=== PATIENT | female | born 1935 | race Caucasian/White ===

== ENCOUNTER 2020-03-23 | Outpatient (REF) | payer OTHER, MEDICARE, MEDICAID, SELFPAY ==
--- NOTE | 2020-03-23 | XR_ITS ---
EXAMINATION: XR HIP, RIGHT CLINICAL INFORMATION: Postoperative evaluation. COMPARISON: 02/24/2020 and pelvic radiographs. TECHNIQUE: Two views of the right hip. FINDINGS: The patient is status post right hip arthroplasty showing good anatomic alignment with no evidence for hardware malfunction or change. 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 The transverse component superiorly appears normally aligned. Cortical irregularity along the lateral margin is unchanged. XR/XR hip RT min 2V IMPRESSION: 1. No significant interval hardware abnormality/change. 2. Fragmentation of the greater trochanter appears similar to the previous study without significant displacement.
== END 2020-03-23 00:01 | disposition home or self-care (01) ==
LOC: HO.XRAY
PROVIDERS: Visit Provider Orthopaedic Surgery
DX: Z96.641 Presence of right artificial hip joint (principal)
CPT/HCPCS: 73502

== ENCOUNTER → 2020-03-23 10:35 | Outpatient (BNVA) | payer MEDICARE, MEDICAID, SELFPAY | PROVIDERS: PCP Family Medicine; Visit Provider Orthopaedic Surgery | DX: Z47.1 Aftercare following joint replacement surgery (principal); Z96.641 Presence of right artificial hip joint | CPT/HCPCS: 99024; 99212 ==

== ENCOUNTER 2020-04-17 07:52 | Outpatient (REF) | payer SELFPAY ==
[2020-04-17 10:11] LABS: Anion Gap 16 (12-20); Blood Urea Nitrogen 16 mg/dL (9-16); Calcium 8.9 mg/dL (8.4-10.2); Carbon Dioxide 25 mmol/L (22-29); Chloride 92 mmol/L (96-108); Estimated Glomerular Filt Rate 54; Glucose Random 140 mg/dL (60-115); Sodium 128 mmol/L (135-145)
== END 2020-04-17 07:53 | disposition home or self-care (01) ==
LOC: HO.MMNH3L 07:52
PROVIDERS: Visit Provider Family Medicine
DX: E13.9 Other specified diabetes mellitus without complications (principal); I10 Essential (primary) hypertension
CPT/HCPCS: 80048

== ENCOUNTER 2023-03-19 11:55 | Outpatient (REF) | payer MEDICARE, MEDICAID, SELFPAY ==
[2023-03-19 13:10] LABS: MANUAL DIFF FLAG NO
[2023-03-19 13:14] LABS: Basophils Absolute Auto 0.1 X10*3/uL (0.0-0.2); Eosinophils Absolute Auto 0.2 X10*3/uL (0.0-0.4); Eosinophils Percent Auto 2.1 % (0-4); Hematocrit 34.9 % (37.0-47.0); Hemoglobin 11.2 g/dl (12.0-16.0); Imm Gran Abs Auto 0.02 X10*3/uL (0.00-0.03); Imm Gran Pct Auto 0.2 % (0.0-0.4); Lymphocytes Absolute Auto 2.2 X10*3/uL (1.2-4.9); Lymphocytes Percent Auto 26.9 % (20-40); Mean Corpuscular HGB Conc 32.1 g/dl (31.0-35.0); Mean Corpuscular Hemoglobin 30.9 pg (27.0-33.0); Mean Corpuscular Volume 96.1 fL (80.0-98.0); Mean Platelet Volume 10.8 fL (9.4-12.3); Monocytes Absolute Auto 0.7 X10*3/uL (0.1-1.2); Monocytes Percent Auto 9.2 % (2-11); Neutrophils Absolute Auto 4.9 x10*3/uL (2.0-8.3); Neutrophils Percent Auto 60.6 % (45-73); Platelet Count 346 X10*3/uL (160-400); Red Blood Count 3.63 X10*6/uL (4.20-5.50); Red Cell Distribution Width 16.9 % (11.0-16.0); White Blood Count 8.1 X10*3/uL (4.8-10.8)
[2023-03-19 13:39] LABS: Anion Gap 14 (12-20); Blood Urea Nitrogen 11 mg/dL (9-16); Calcium 9.2 mg/dL (8.4-10.2); Carbon Dioxide 24 mmol/L (22-29); Chloride 105 mmol/L (96-108); Estimated Glomerular Filt Rate 54; Glucose Random 103 mg/dL (60-115); Potassium 3.8 mmol/L (3.3-5.1); Sodium 139 mmol/L (135-145)
[2023-03-19 13:44] LABS: Appearance Urine Cloudy; Color Urine Yellow; Glucose Urine UA Negative (Negative); Leukocyte Esterase Urine Trace (Negative); Nitrite Urine Negative (Negative); Specific Gravity - Urine 1.015 (1.005-1.025); UMIC TRIGGER UACC YES; Urine Blood Negative (Negative); Urine Ketones Negative (Negative); Urine Protein 100 (2+) mg/dL (Neg-Trace)
[2023-03-19 13:51] LABS: Bacteria Urine 1+ (None Seen); Hyaline Casts Urine 0-2 /LPF (0-2); RBC Urine 0-2 /HPF (0-2); Squamous Epithelial Cell Urine >20 /HPF (0-2); UACC Culture Trigger YES
== END 2023-03-19 11:56 | disposition home or self-care (01) ==
LOC: HO.HHCL 11:55
PROVIDERS: Visit Provider Internal Medicine
DX: E11.42 Type 2 diabetes mellitus with diabetic polyneuropathy (principal); I10 Essential (primary) hypertension; N30.01 Acute cystitis with hematuria
CPT/HCPCS: 36415; 80048; 81001; 85025; 87086

== ENCOUNTER 2023-09-19 09:53 | Outpatient (REF) | payer MEDICARE, MEDICAID, SELFPAY ==
[2023-09-21 22:09] LABS: TS Negative Control Passed; TS Panel A 0; TS Panel B 1; TS Positive Control Passed; TSpotTB Negative (Negative)
== END 2023-09-19 09:54 | disposition home or self-care (01) ==
LOC: HO.HHCL 09:53
PROVIDERS: Visit Provider General Practice
DX: Z02.1 Encounter for pre-employment examination (principal)
CPT/HCPCS: 36415; 86481

== ENCOUNTER 2025-03-08 13:46 | Outpatient (REF) | payer MEDICARE, MEDICAID, SELFPAY ==
--- OUTSIDE RECORDS SUMMARY | 2025-03-08 13:00 | XMS_ITS | Encounter Summary ---
Author Organization [employer] Address [address] [facility] [address] [place] [address] Care Team Providers Care Mail Room Clerk Name Role Phone Sharron Cruz MD Primary Care Provider [phone] Reason for Visit * Reason Comments hospital discharge follow up Encounter Details Date Type Department Care Team ([facility] Contact Info) Description 03/08/2025 1:00 PM EDT Office Visit [facility] MED [facility] PEDS [address] [place] [address] Sharron Cruz MD [address] [place] [address] Primary hypertension (Primary Dx); Difficulty walking; Primary insomnia; Type 2 diabetes with complication (CMS/HCC) Social History Tobacco Use Types Packs/Day Years [...] is your housing situation today? I have hermann dale 02/22/[address] you [...] 1:57 PM EDT Patricia Davis MA * Poor appetite or overeating Answer [...] of Assessment Author 16 03/08/2025 1:57 PM MEDARDOT Konstantin Simpson MA * How difficult have these problems made it for you to do your work, take care of things at home, or get along with other people? Answer Date of Assessment Author Extremely difficult 03/08/2025 1:57 PM Patricia Cobos MA documented as of this encounter Plan of Treatment Scheduled Orders Name Type Priority Associated Diagnoses Orde r Schedule Basic Metabolic Panel Lab Routine Primary hypertension Expected: 03/08/2025 (Approximate), Expires: 03/08/2026 documented as of this encounter Goals Goal Patient Goal Type Associated Problems Recent Progress Patient-Stated? Author Hemoglobin A1c < 8 Result Component 6.4(03/19/2024 4:15 PM EDT) No Liz Tapia, Enrique documented as of this encounter Procedures Procedure Name Priority Date/Time Associated Diagnosis Comments POCT GLUCOSE Routine 03/08/2025 1:56 PM EDT Type 2 diabetes with complication (CMS/HCC) documented in this encounter Results * (ABNORMAL) POCT Glucose (03/08/2025 1:56 PM EDT) Glucose Blood, POC 308(A) 60 - 200 mg/dL QC Media Lot # [id number] Lot# Expiration Date Comment:random Blood Capillary blood specimen / Unknown 03/08/2025 1:56 PM EDT Sharron Cruz MD POINT OF CARE TEST ENTER/ED IT ORDERABLES Final Result documented in this encounter Visit Diagnoses Diagnosis Primary hypertension- Primary Unspecified essential hypertension Difficulty walking Difficulty in walking Primary insomnia Persistent disorder of initiating or maintaining sleep Type 2 diabetes with complication (CMS/HCC) documented in this encounter Additional Health Concerns Assessment Noted Time PHQ-9 Depression Total Score: 16 025 1:57 PM EDT documented as of this encounter Care Teams Mail Room Clerk Relationship Specialty Start Date End Date Sharron Cruz MD [address] [place] [id number] PCP - General Internal Medicine 03/01/25 [facility] 08/05/24 documented as of this encounter
--- OUTSIDE RECORDS SUMMARY | 2025-03-08 17:37 | XMS_ITS | Encounter Summary ---
Author Organization [employer] Address [address] [facility] 7t [place] [address] Care Team Providers Care Precision Agronomist Name Role Phone Argelia Max MD Primary Care Provider [phone] Sharron Cruz MD Primary Care Provider [phone] Reason for Visit * Reason Onset Date Comments FYI 07/28/2023 Encounter Details Date Type Department Care Team ([facility] st Contact Info) Description 07/28/2023 Telephone [facility] MEDICINE [address] [place], [place] [phone] Argelia Max MD [address] [place], [place] [phone] FYI Social History Tobacco Use Types Packs/Day Years Used Date Smoking Tobacco: Never Passive Smoke Exposure: Never Smokeless Tobacco: Never Alcohol Use Standard Drinks/Week Comments Never 0 (1 standard drink = 0.6 oz pur e alcohol) Housing Stability Answer Date Recorded What is your housing situation today? I have hermann dale 04/11/[address] you li ve. Do you have problems with any of the following? I am not sure 04/11/2023 Food Insecurity Answer Date Recorded Within the past 12 months, y ou worried that your food would run out before you got money to buy more: Never True 04/11/2023 Within the past 12 months,th e food you bought just didn't last and you didn't have enough money to get more: Never True Transportation Answer Date Recorded In the past 12 months, has l ack of transportation kept you from medical appts, meetings, work or from getting things needed for daily living? No 04/11/2023 Utilities Answer Date Recorded In the past 12 months, has t he electric, gas, oil or water company threatened to shut off services in your home? No 04/11/2023 Comments Unknown Sex and Gender Information Value Date Recorded Sex Assigned at Female 04/22/2022 10:14 AM EDT Legal Sex Female 10:14 AM EDT Gender Identity Female 04/22/2022 10:14 AM EDT Sexual Orientation Straight 04/22/2022 10 :14 AM EDT documented as of this encounter Miscellaneous Notes * Telephone Encounter - Meagan Patricio RN - 07/28/2023 4:37 PM EST FYI * Telephone Encounter - El Marin - 07/28/2023 4:12 PM EST Tc from Deidre, physical therapist at [facility], wanting to let pcp know pt was discharged early.Deidre stated pt's grandson requested she be discharged early due to her reaching baseline in mobility. If any questions you can contact Deidre [phone]. documented in this encounter Plan of Treatment Not on file documented as of this encounter Visit Diagnoses Not on filedocumented in this encounter Care Teams Precision Agronomist Relationship Specialty Start Date End Date Argelia Max MD [address] [place] [address] PCP - General Family Medicine 02/24/22 02/28/25 Sharron Cruz MD [address] [place] [address] PCP - General Internal Medicine 03/01/25 [facility] 08/05/24 documented as of this encounter
--- OUTSIDE RECORDS SUMMARY | 2025-03-08 17:37 | XMS_ITS | Patient Health Record ---
Author Organization [facility] Address [address] [place] [address] Care Team Providers Care Shirt Trimmer Name Role Phone Gerardo ZAMORA, Deborah Primary Care Provider Unavailab Trevin Brown Unavailable [phone] Reason For Referral No Information Plan Of Treatment No Information Insurance Providers Payer Name Payer Address Payer Phone Subscriber Number Group Number Insured Name Patient Relationship to Insured Coverage Start Date Coverage End Date MEDICARE OF [place] [address] JESUS MONIQUE [address] [id number] FRANSICO LOMBARDO Self - patient is the insured MEDICAID OF [facility] [address] [place] [address] [id number] FRANSICO LOMBARDO Self - patient is the insured
--- OUTSIDE RECORDS SUMMARY | 2025-03-08 17:37 | XMS_ITS | Encounter Summary ---
Author Organization [employer] Address [address] [facility] 7t [place] [address] Care Team Providers Care Parole Officer Name Role Phone Argelia Max MD Primary Care Provider [phone] Sharron Cruz MD Primary Care Provider [phone] Reason for Visit * Reason Onset Date Comments FYI 05/29/2023 Encounter Details Date Type Department Care Team ([facility] st Contact Info) Description 05/29/2023 Telephone [facility] MEDICINE 230 [place], [place] [phone] Argelia Max MD [address] [place], [place] [phone] FYI Social History Tobacco Use Types Packs/Day Years Used Date Smoking Tobacco: Never Smokeless Tobacco: Never Alcohol Use Standard [...] encounter Miscellaneous Notes * Telephone Encounter - Ailyn Shipley - 05/29/2023 9:04 AM EST Tc from aleena calling to advise PCP she will be faxing form for authorization on [employer] services. States will need it signed and faxed to [phone] before 06/03. Any questions, contact aleena at [phone] ext [phone] documented in this encounter Plan of Treatment Not on file documented as of this encounter Visit Diagnoses Not on filedocumented in this encounter Care Teams Parole Officer Relationship Specialty Start Date End Date Argelia Max MD [address] [place] [address] PCP - General Family Medicine 02/24/22 02/28/25 Sharron Cruz MD [address] [place] [address] PCP - General Internal Medicine 03/01/25 [facility] 08/05/24 documented as of this encounter
--- OUTSIDE RECORDS SUMMARY | 2025-03-08 17:37 | XMS_ITS | Encounter Summary ---
Author Organization [employer] Address [address] [facility] 7t [place] [address] Care Team Providers Care Line Assigner Name Role Phone Argelia Max MD Primary Care Provider [phone] Sharron Cruz MD Primary Care Provider [phone] Reason for Visit * Reason Onset Date Comments Hospital Follow-up 12/27/2024 Encounter Details Date Type Department Care Team (Late st Contact Info) Description 12/27/2024 Telephone [facility] MEDICINE 230 [place], [place] [phone] Argelia Max MD 230 [place], [place] [phone] Hospital Follow-up Social History Tobacco Use Types Packs/Day Years Used Date Smoking Tobacco: Never Passive Smoke Exposure: Never Smokeless Tobacco: Never Alcohol Use Standard Drinks/Week Comments Never 0 (1 standard drink = 0.6 oz pur e alcohol) Depression Answer Date Recorded Patient Health Questionnaire-9 Score 8 09/19/2023 Patient Health Questionnaire-9 Score 8 09/19/2023 Last PHQ-9: Questionnaire Data Not on file 0 09/19/2023 Housing Stability Answer Date Recorded What is your housing situation today? I have [place]mann dale 09/10/[address] you li ve. Do you have problems with any of the following? None of the above 09/10/2023 Food Insecurity Answer Date Recorded Within the [...] off services in your home? No 04/11/2023 Depression Answer Date Recorded Patient Health Questionnaire-2 Score 1 09/19/2023 Comments No Sex and Gender Information Value Date Recorded Sex Assigned at Female 04/22/2022 10:14 AM EDT Legal Sex Female 10:14 AM EDT Gender Identity Female 04/22/2022 10:14 AM EDT Sexual Orientation Straight 04/22/2022 10 :14 AM EDT documented as of this encounter Miscellaneous Notes * Telephone Encounter - Antoine Burdick - 12/27/2024 12:50 PM EDT Tc from pt requesting a HDF appt. Hospital: [facility] Date of admission: 12/16/24 Discharge date: 12/21/24 Diagnosed: dehydration / other DX that granddaughter was unable to provide. D/s advised to stop Losartan and Labetalol documented in this encounter Plan of Treatment Not on file documented as of this encounter Goals Goal Patient Goal Type Associated Problems Recent Progress Patient-Stated? Author Hemoglobin A1c < 8 Result Component 6.4(03/19/2024 4:15 PM EDT) No Liz Tapia, PharmD documented as of this encounter Visit Diagnoses Not on filedocumented in this encounter Additional Health Concerns Assessment Noted Time PHQ-9 Depression Total Score: 8 09/19/19 24 9:44 AM EDT documented as of this encounter Care Teams Line Assigner Relationship Specialty Start Date End Date Argelia Mxa MD [address] [place] [address] PCP - General Family Medicine 02/24/22 02/28/25 Sharron Cruz MD [address] [place] [address] PCP - General Internal Medicine 03/01/25 [facility] 08/05/24 documented as of this encounter
--- OUTSIDE RECORDS SUMMARY | 2025-03-08 17:38 | XMS_ITS | Encounter Summary ---
Author Organization [employer] Address [address] [facility] 7 [place] [address] Care Team Providers Care Torpedo Shooter Name Role Phone Sharron Cruz MD Primary Care Provider [phone] Reason for Visit * Reason Onset Date Comments Chart Prep 03/07/2025 Encounter Details Date Type Department Care Team ([facility] st Contact Info) Description 03/07/2025 Telephone [facility] [address] [place] [address] Sharron Cruz MD [address] [place] [address] Chart Prep Social History Tobacco Use Types Packs/Day Years [...] encounter Miscellaneous Notes * Telephone Encounter - Zulay Marin MA - 03/07/2025 10:36 AM EDT Chart Prep Labs: not done Images: done Referrals: complete Vaccines due: Tdap, RSV, and Zoster Screenings: eye exam and foot exam Overdue care gaps: SBIRT and PHQ-9 documented in this encounter Plan of Treatment [...] documented as of this encounter Care Teams Torpedo Shooter Relationship Specialty Start Date End Date Sharron Cruz MD [address] [place] [address] [place] [address] PCP - General Internal Medicine 03/01/25 [facility] 08/05/24 documented as of this encounter
--- OUTSIDE RECORDS SUMMARY | 2025-03-08 17:38 | XMS_ITS | Encounter Summary ---
Author Organization [employer] Address [address] [facility] 7t [place] [address] Care Team Providers Care Dollyman Name Role Phone Argelia Max MD Primary Care Provider [phone] Sharron Cruz MD Primary Care Provider [phone] Reason for Visit * Reason Comments Med Refill Encounter Details Date Type Department Care Team ([facility] st Contact Info) Description 09/30/2023 Refill [facility] MEDICINE [address] [place], [place] [phone] Zakia Troncoso DO [address] [place], [place] [phone] Primary insomnia Social History Tobacco Use Types Packs/Day Years [...] AM EDT documented as of this encounter Plan of Treatment Not on file documented as of this encounter Goals Goal Patient Goal Type Associated Problems Recent Progress Patient-Stated? 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
--- OUTSIDE RECORDS SUMMARY | 2025-03-08 17:38 | XMS_ITS | Encounter Summary ---
Author Organization [employer] Address [address] [facility] 7t [place] [address] Care Team Providers Care Operating Cost Clerk Name Role Phone Argelia Max MD Primary Care Provider [phone] Sharron Cruz MD Primary Care Provider [phone] Reason for Visit * Reason Onset Date Comments Hospital Follow-up 02/28/2025 Encounter Details Date Type Department Care Team (Late st Contact Info) Description 02/28/2025 Telephone [facility] MEDICINE [address] [place], [place] [phone] Argelia Max MD [address] [place], [place] [phone] Hospital Follow-up Social History Tobacco Use Types [...] Recorded Patient Health Questionnaire-2 Score 1 09/19/2023 Internet Access Answer Date Recorded Internet Access [...] encounter Miscellaneous Notes * Telephone Encounter - Emmy Maldnoado - 02/28/2025 3:25 PM EDT Tc from pt requesting a HDF appt. Hospital: [address], [place] [address] Date of admission: 02/07 Discharge date: 02/28 Diagnosed: Broken arm *Send message to [place] Clinical Care Coordinators documented in this encounter Plan of Treatment [...] documented as of this encounter Care Teams Operating Cost Clerk Relationship Specialty Start Date End Date Argelia Max MD [address] [place] [address] PCP - General Family Medicine 02/24/22 02/28/25 Sharron Cruz MD [address] [place] [address] PCP - General Internal Medicine 03/01/25 [facility] 08/05/24 documented as of this encounter
--- OUTSIDE RECORDS SUMMARY | 2025-03-08 17:38 | XMS_ITS | Encounter Summary ---
Author Organization [employer] Address 75 [facility] 7t [place] [address] Care Team Providers Care Agency Service Coordinator Name Role Phone Argelia Max MD Primary Care Provider [phone] Sharron Cruz MD Primary Care Provider [phone] Reason for Visit * Reason Onset Date Comments Nurse Triage 11/11/2023 Encounter Details Date Type Department Care Team ([facility] st Contact Info) Description 11/11/2023 Telephone [facility] MEDICINE [address] [place], [place] [phone] Argelia Max MD 230 [place], [place] [phone] Nurse Triage Social History Tobacco Use Types Packs/Day Years [...] Miscellaneous Notes * Telephone Encounter - Ailyn Quinten - 11/11/2023 8:41 AM EDT Symptoms: COVID-19 Exposure, Cough, Runny Nose, Body Aches Outcome: Schedule a same-day appointment or talk to a nurse or provider today Reason: Caller denied all higher acuity questions The caller accepted this outcome Please contact [facility] at [phone] (conference interpreter) documented in this encounter Plan of Treatment [...] documented as of this encounter Care Teams Agency Service Coordinator Relationship Specialty Start Date End Date Argelia Max MD [address] [place] [phone] PCP - General Family Medicine 02/24/22 02/28/25 Sharron Cruz MD [address] [place] [address] PCP - General Internal Medicine 03/01/25 [facility] 08/05/24 documented as of this encounter
--- OUTSIDE RECORDS SUMMARY | 2025-03-08 17:38 | XMS_ITS | Clinical Summary ---
Author Organization [facility] [employer] Address [address] [facility] [address] [place] [address] Care Team Providers Care Drop Wire Aliner Name Role Phone Sharron Cruz MD Primary Care Provider [phone] Allergies Active Allergy Reactions Criticality Noted Date Comments Sulfamethoxazole 06/29/2010 Other reaction(s): rash: itchy Trimethoprim Hives,Rash Medium 06/29/2010 Other reaction(s): rash: itchy Other reaction(s): Nausea Medications glucose (Glutose) 40 % gel oral gelIndications: Diabetic peripheral neuropathy associated with type 2 diabetes mellitus (CMS/HCC) Take 15 g by mouth if needed for low blood sugar. 15 g 3 03/19/20 23 Active lidocaine (Lidoderm) 5 % patchIndication s:Chronic pain of both shoulders Apply 1 patch topically Once per day. Remove & discard patch within 12 hours or as directed by MD. 30 patch 5 03/20/20 24 025 Active Diclofenac Sodium 1 % gelIndications: Chronic pain of both shoulders Apply 2 g topically in the morning and 2 g at noon. 150 g 3 03/20/20 24 Active docusate sodium (Colace) 100 MG capsule TAKE ONE CAPSULE EVERY MORNING 90 capsule 3 04/29/20 24 Active atorvastatin (Lipitor) 80 MG tablet TAKE ONE TABLET EVERY MORNING 90 tablet 3 07/23/19 25 Active FREESTYLE LITE test stripIndication s:Type 2 diabetes with complication (CMS/HCC) Use to test blood sugar 2 times daily 100 each 12 08/17/19 25 026 Active Blood Pressure Monitoring (Blood Pressure Cuff) miscIndications :Primary hypertension 1 each Once daily. 1 each 08/17/19 25 Active omeprazole (PriLOSEC) [address] capsule TAKE ONE CAPSULE EVERY MORNING BEFORE BREAKFAST 90 capsule 1 10/21/19 25 Active levothyroxine (Synthroid, Levoxyl) 137 MCG tablet Take 137 mcg by mouth Once per day. 90 tablet 3 11/03/19 25 Active ferrous sulfate (Fe Tabs) 325 (65 Fe) MG EC tablet Take 1 tablet (325 mg) by mouth Once per day. Do not crush, chew, or split. 30 tablet 2 01/27/20 25 025 Active amLODIPine (Norvasc) 10 MG tablet Take 1 tablet (10 mg) by mouth Once per day. 90 tablet 1 01/27/20 25 Active QUEtiapine (SEROquel) 25 MG tablet TAKE ONE TABLET EVERY NIGHT AT BEDTIME 30 tablet 3 02/01/20 25 Active oxyCODONE (Roxicodone) 5 MG immediate release tabletIndicatio ns:Physeal fracture of proximal end of humerus with routine healing, unspecified physeal fracture configuration, unspecified laterality, subsequent encounter TAKE 1/2 TO 1 TABLET EVERY 8 HOURS NEEDED FOR SEVERE PAIN 15 tablet 03/02/20 25 Active ascorbic acid (Vitamin C) 500 mg chewable tablet Chew at bed time. 02/10/20 25 Active glucagon 1 MG injection Inject into the muscle. 02/03/20 25 Active acetaminophen (Tylenol) 325 MG tablet Take by mouth every 6 (six) hours. 02/09/20 25 Active gabapentin (Neurontin) 100 MG capsule Take 1 capsule twice daily 60 capsule 03/03/20 25 Active clopidogrel (Plavix) 75 MG tablet Take 1 tablet (75 mg) by mouth Once per day. 90 tablet 03/03/20 25 Active traZODone (Desyrel) 50 MG tablet Take 1 tablet (50 mg) by mouth if needed at bedtime for sleep. 30 tablet 2 03/03/20 25 Active losartan (Cozaar) 100 MG tabletIndicatio ns:Primary hypertension Take 1 tablet (100 mg) by mouth Once per day. 30 tablet 11 03/08/20 25 026 Active ascorbic acid (Vitamin C) 500 MG tablet Take 1 tablet (500 mg) by mouth Once per day. 30 tablet 11 03/08/20 25 026 Active melatonin 5 MG tabletIndicatio ns:Primary insomnia 5 to 10 mg once a day at bedtime 60 tablet 3 03/08/20 Active Blood Pressure Monitor kit Use as directed 3x/week 1 kit 03/19/20 025 Discontinued(Du plicate order (will not trigger notification to Pharmacy)) magnesium oxide (Mag-Ox) 400 (240 Mg) MG tablet Take 400 mg by mouth Once per day. 06/06/20 025 Discontinued(Me d list cleanup (will not trigger notification to Pharmacy)) gabapentin (Neurontin) 100 MG capsule TAKE TWO CAPSULES TWICE DAILY IN THE MORNING AND AT BEDTIME FOR NERVE PAIN 120 capsule 11 09/22/19 025 Discontinued(Re order (will not trigger notification to Pharmacy)) Aspirin Low Dose 81 MG chewable tablet TAKE ONE TABLET EVERY MORNING 90 tablet 3 11/17/19 025 Discontinued(Th erapy completed) oxyCODONE (Roxicodone) 5 MG immediate release tabletIndicatio ns:Physeal fracture of proximal end of humerus with routine healing, unspecified physeal fracture configuration, unspecified laterality, subsequent encounter Take 0.5-1 tablets (2.5-5 mg) by mouth every 8 (eight) hours if needed for severe pain for up to 5 days. 15 tablet 01/25/20 025 Discontinued bisacodyl (Dulcolax) 10 MG suppository Insert into the rectum. 02/03/20 025 Discontinued(Me d list cleanup (will not trigger notification to Pharmacy)) clopidogrel (Plavix) 75 MG tablet Take by mouth at bed time. 02/03/20 025 Discontinued(Re order (will not trigger notification to Pharmacy)) losartan (Cozaar) 50 MG tablet Take by mouth at bed time. 02/25/20 025 Discontinued(Re order (will not trigger notification to Pharmacy)) magnesium hydroxide (Milk of Magnesia) 400 MG/5ML suspension Take by mouth. 02/03/20 025 Discontinued(Me d list cleanup (will not trigger notification to Pharmacy)) oxyCODONE (Roxicodone) 5 MG immediate release tablet Take 5 mg by mouth. 02/05/20 025 Discontinued(Du plicate order (will not trigger notification to Pharmacy)) polyethylene glycol, PEG, 3350 (GlycoLax) 17 GM/SCOOP powder Take 17 g by mouth. 02/09/20 025 Discontinued(Me d list cleanup (will not trigger notification to Pharmacy)) traZODone (Desyrel) 100 MG tablet Take 50 mg by mouth. 02/18/20 025 Discontinued(Re order (will not trigger notification to Pharmacy)) losartan (Cozaar) 50 MG tablet Take 1 tablet (50 mg) by mouth Once per day. Hold if SBP < 100 30 tablet 2 03/03/20 025 Discontinued Active Problems Problem Noted Date Diagnosed Date Fracture of upper end of humerus 02/01/2025 Type 2 diabetes mellitus wit h chronic kidney disease, without long-term current use of insulin 01/21/2025 Dependence on wheelchair 01/21/2025 Mitral valve insufficiency 01/21/2025 Frail elderly 01/21/2025 Primary osteoarthritis of left knee 01/21/2025 Dyslipidemia 01/21/2025 Diastolic dysfunction 01/21/2025 Chronic interstitial lung disease 01/21/2025 Atherosclerosis of aorta 01/21/2025 Age-related osteoporosis wit hout current pathological fracture 01/21/2025 Interstitial lung disease 01/21/2025 Chronic kidney disease due to type 2 diabetes me llitus 01/21/2025 Osteoporosis 01/21/2025 Acquired hypothyroidism 08/17/2024 Assessment & Plan (08/17/2024 12:39 PM EST): Continue with levothyroxine 137 mcg daily TSH ordered today, I instructed for her to come in 2 weeks for blood to be drawn 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 08/17/2024 Assessment & Plan (08/17/2024 12:36 PM EST): I will order echocardiogram today patient will be contacted with results Continue with aspirin and clopidogrel for now Closed fracture of cervical vertebra 08/17/2024 Assessment & Plan (08/17/2024 12:38 PM EST): Patient has upcoming appointment with neurosurgery, I advised not to miss appointment Depression, recurrent 09/21/2023 Red eye 09/21/2023 Assessment & Plan (09/21/2023 5:12 PM EDT): R eye, erythromycin ointment for 3-4 days Microalbuminuria 07/21/2023 07/21/2023 Osteopenia 07/21/2023 07/21/2023 Sleep apnea syndrome 07/21/2023 07/21/2023 Urinary retention 06/17/2023 Assessment & Plan (06/17/2023 2:26 PM EST): Currently with mendez catheter VNA service to be provided Primary insomnia 06/17/2023 Acute kidney injury superimposed on CKD ([facility] ) 06/17/2023 Assessment & Plan (06/17/2023 2:26 PM EST): CMP ordered to verify eGFR and electrolytes are back to her baseline Hospital discharge follow-up 06/17/2023 Assessment & Plan (06/17/2023 2:27 PM EST): Referrals and medications address today 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 Patient does not want therapist (and not sure how helpful that would be at this point) Referral to neurology approved, call [facility] to schedule Alzheimer's number given in case they can be of support Try to maintain day/night cycles Seroquel 25-50 mg at night Assessment & Plan (09/21/2023 5:13 PM EDT): Family was educated about condition Referral to neurology pending Alzheimer's number given in case they can be of support Try to maintain day/night cycles Seroquel 25mg at night Assessment & Plan (06/17/2023 2:25 PM EST): Family was educated about condition Referral to neurology done as per their request Requires assistance with activities of daily rebecca ing (ADL) 04/16/2023 Assessment & Plan (04/16/2023 10:08 AM EDT): Recommend going to medical records and starting process of requesting REG[facility] N[facility]SE NURS[facility] for assistance Seeking other supports for dementia care Vascular dementia without behavioral disturbance 04/16/2023 COVID 03/19/2023 Assessment & Plan (11/12/2023 3:57 PM EDT): I advise to call 911 for an ambulance and transfer patient to [facility] emergency room Case present to Dr Worthington Assessment & Plan (03/19/2023 3:05 PM EDT): Resolved, Off O2 supplementation and steroids. Agreed to have Influenza vax today Fu w PCP Acute cystitis with hematuria 03/19/2023 Assessment & Plan (03/19/2023 2:52 PM EDT): Reportedly resolved. Repeat UA due to reported oliguria (?). Obtain CT scan and urology eval at [facility]. Reportedly didn't need further fu (Per SNF discharge papers). Encourage increase water intake Absence of bladder continence 03/19/2023 Cognitive changes 03/19/2023 Assessment & Plan (03/19/2023 3:11 PM EDT): Admitted with acute MS changes on 02/16. It was probably Delirium sec to acute medical conditions? As MS seems to be improving slowly at home, I discussed with patient and family re importance of optimal control of medical conditions, rest, adequate sleep, going outside in the wheelchair every day etc and fu with PCP for further MS exam. I will obtain CT scan head from [facility], I told them that given hx DM and HTN, she probably had some microvascular changes, unclear what her baseline MS was [place] [employer]. PT/OT evaluation as above Family will administer insulin and will remind about other meds. I will order a swallowing study given dysphagia. 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 FU w PCP Counseled family to advance to finger foods, small food bites as tolerated. Unsteadiness on feet 02/11/2020 04/11/2023 Difficulty walking 02/11/2020 Osteoarthritis 10/21/2018 Assessment & Plan (03/19/2023 3:04 PM EDT): Needs PT evaluation at home to improve ambulation, prevent falls. Ambulate with walker Needs probably a shower chair, commode. Will wait for PT/OT eval if needed to send DME rxs. Continue Tylenol and baclofen prn only. Caution with sedation and worsening constipation and MS changes with baclofen. Bilateral hearing loss 02/17/2018 Diabetic peripheral neuropat hy associated with type 2 diabetes mellitus 02/17/2018 Assessment & Plan (03/19/2023 2:49 PM EDT): A1c is at goal today. Increase Levemir to 20u (she was on it [place]). I d/w family re fgstk check bid + prn hypoglycemia sxs. Rx glucose gel to give prn sxs Continue off Actos and Glipizide (which seh was on [place], in [place]). Fu with PCP in 3-4w with labs Stage 3b chronic kidney disease 02/17/2018 Assessment & Plan (03/19/2023 2:56 PM EDT): Probably related to DM/HTN. Apparently worsened During recent hospitalization. Repeat BMP today. Will restart lisinopril if GFR is improved. FU w PCP and decide on renal referral. Allergic rhinitis, unspecified 10/30/2015 Constipation 10/30/2015 Assessment & Plan (03/19/2023 2:50 PM EDT): Restart Colace, fu with PCP Diabetic retinopathy 10/30/2015 Hypertension 10/30/2015 Assessment & Plan (08/17/2024 12:37 PM EST): Blood pressure today seems to be elevated I advised low-sodium diet and to take her medication as prescribed I advised to monitor blood pressure at home and report back if it is persistently out of goal, patient has VNA services who will help with this Assessment & Plan (03/20/2024 12:45 PM EDT): At goal today <140/90 Taking Losartan 50mg, Amlodipine 5mg, and Labatolol 100mg TID Will check for worsening renal function, have family check Bps at home and have nurse visit for BP followup in 1-2 weeks ER for chest pain BMP: Lab Results Component Value Date CREATININE 0.97 03/19/2023 eGFR 54 Lipid Panel: ASCVD Risk: The ASCVD Risk score (Rafael MUSTAFA, et al., 2019) failed to calculate for the following reasons: The 2019 ASCVD risk score is only valid for ages 40 to 79 - Aerobic exercise to reduce BP. Initial goal of 30 min walk 3-5x/week. Increase as tolerated. - low-sodium diet (goal: <2g/day) and heart healthy diet such as DASH to reduce BP and prevent ASCVD. - Home BP monitoring 1-2 x day with goal of <140/90. - Seek immediate medical attention for chest pain, palpitations, SOB, syncope, or sudden changes in mental status. - Do not change or discontinue current prescriptions without first consulting health care provider Assessment & Plan (11/25/2023 1:55 PM EDT): At goal today <140/90 Taking Losartan 50mg, Nifedipine 60 BID, and Labatolol BMP: Lab Results Component Value Date CREATININE 0.97 03/19/2023 Lipid Panel: ASCVD Risk: The ASCVD Risk score (Rafael MUSTAFA, et al., 2019) failed to calculate for the following reasons: The 2019 ASCVD risk score is only valid for ages 40 to 79 - Aerobic exercise to reduce BP. Initial goal of 30 min walk 3-5x/week. Increase as tolerated. - low-sodium diet (goal: <2g/day) and heart healthy diet such as DASH to reduce BP and prevent ASCVD. - Home BP monitoring 1-2 x day with goal of <140/90. - Seek immediate medical attention for chest pain, palpitations, SOB, syncope, or sudden changes in mental status. - Do not change or discontinue current prescriptions without first consulting health care provider Assessment & Plan (07/28/2023 8:54 AM EST): Difficult to understand what is happeneing with pt's blood pressure and how her mental status is without some degree of HTN encephalopathy - should be on Losartan 50, Nifedipine 60 BID, and Labatolol She has not had medications for unknown amount of time, difficulties with insurance and changing coverage from [place] to [place] Will check BP status on 07/28/23 televisit ER precautions for CP Assessment & Plan (03/19/2023 2:50 PM EDT): Uncontrolled today, she's apparently on lisinopril 40mg only. Ordered BMP and will call her to continue anatoliy inh or not, depending on GFR. Restart Coreg at 3.125mg bid and adjsut By PCP Family to check BP at home three times per week. Hypothyroidism 10/30/2015 Assessment & Plan (03/19/2023 3:04 PM EDT): She's back to levothyroxine 100 mcg as she was taking up Until 1mo ago. She will continue this dose and check TSH in 2m. FU w PCP Indigestion 10/30/2015 Mild persistent asthma 10/30/2015 Obesity 10/30/2015 Primary osteoarthritis involving multiple joints 10/30/2015 Chronic kidney disease 10/30/2015 Type 2 diabetes with complication 10/30/2015 Assessment & Plan (08/17/2024 12:41 PM EST): Glucose levels seem to be okay for now, we will continue to hold insulin and continue with same interventions Glucose will be monitored at home and log will be bring for next appointment to decide further treatment Assessment & Plan (11/25/2023 1:56 PM EDT): Current A1c: 6.2 Microalbumin: Foot Exam: Complete at follow up Eye Exam: Discuss at follow up Statin: Yes ASA: Yes ANATOLIY/ARB: Yes Encouraged regular aerobic exercise for improved glycemic control Encouraged daily foot checks Encouraged lean protein snacks and to avoid foods high in sugar and simple carbohydrates Treatment Goals: A1c goal: <7% FBG goal: <130 2 hour post prandial goal: <180 Assessment & Plan (06/17/2023 2:27 PM EST): I instructed to reinitiate her insulin levemir, patient was before on 16 U at bed time I instructed to only do 10 U at bed time and f/u with PCP 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 10/30/2015 Idiopathic osteoarthritis 10/30/2015 Encounters Date Type Department Care Team Description 03/08/2025 1:00 PM EDT Office Visit [facility] [address] [place] [address] Sharron Cruz MD Primary hypertension (Primary Dx); Difficulty walking; Primary insomnia; Type 2 diabetes with complication ([facility]) 03/08/2025 Travel 03/07/2025 Telephone [facility] [address] [place] [address] Sharron Cruz MD Chart Prep 03/03/2025 Refill [facility] [address] [place] [address] Jaye Trevino, PharmD 03/02/2025 Telephone [facility] [address] [place] [address] Jaye Trevino, PharmD 03/02/2025 Telephone [facility] [address] [place] [address] Sharron Cruz MD chart prep 03/02/2025 Refill [facility] [address], [place] [phone] Argelia Max MD Physeal fracture of proximal end of humerus with routine healing, unspecified physeal fracture configuration, unspecified laterality, subsequent encounter 02/28/2025 Patient Outreach [facility] [address], [place] [phone] Argelia Max MD Transition Of Care (Tcm) (HDF- unscheduled ) 02/28/2025 Telephone [facility] [address] [place] [phone] Argelia Max MD Hospital Follow-up 02/28/2025 Telephone [facility] [address] [place] [address] Argelia Max MD Chart Prep 02/22/2025 Patient Outreach [address] [phone] Argelia Max MD Pre-visit Planning (SDOH screening negative and Tobacco screening negative) 01/31/[address] [address] Argelia Max MD FYI 01/30/[address] [phone] Argelia Max MD 01/27/2025 Telephone [facility] [address], [place] [phone] Argelia Max MD 01/26/2025 7:00 PM EDT Office Visit [facility] [address] [place] [phone] Roger Sanon MD Iron deficiency anemia secondary to inadequate dietary iron intake (Primary Dx); Primary hypertension; Difficulty walking; Requires assistance with activities of daily living (ADL) 01/26/2025 Travel 01/25/[address] [address] Argelia Max MD Referral 01/21/2025 3:45 PM EDT Telemedicine [facility] [address] [place] [phone] Argelia Max MD 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, psychotic disturbance, mood disturbance, or anxiety (CMS/HCC) (Primary Dx); Dietary counseling; Exercise counseling; Overweight; Diabetic peripheral neuropathy associated with type 2 diabetes mellitus (CMS/HCC); Stage 3b chronic kidney disease (CMS/HCC); Congestive heart failure, unspecified HF chronicity, unspecified heart failure type (CMS/HCC); Chronic interstitial lung disease (CMS/HCC); Physeal fracture of proximal end of humerus with routine healing, unspecified physeal fracture configuration, unspecified laterality, subsequent encounter; Physical deconditioning; Multiple falls 01/21/2025 Travel 01/11/2025 Patient Outreach [address] [phone] Argelia Max MD Pre-visit Planning ((Unable to reach for PVP screening, LVM) to be completed in office ) 01/10/2025 Telephone [facility] [address], [place] [phone] Sharron Cruz MD No Show 01/03/2025 Refill [facility] [address] [place] [address] Tiffanie Davenport PharmD 12/27/2024 Patient Outreach [facility] [address], [place] [phone] Argelia aMx MD Transition Of Care (Tcm) (HDF scheduled.) 12/27/[address] [phone] Argelia Max MD Hospital Follow-up 12/22/2024 Patient Outreach [address] [address] Argelia Max MD Pre-visit Planning (HDF unscheduled LVM ) 12/06/[address] [phone] Argelia Max MD Nurse Triage from Last 3 Months Immunizations Immunization Administration Dates Next Due Hep B, adult 12/27/2013,07/15/2013,05/14/2013 Influenza injectable quadriv alent IIV4 with preservative 07/04/2017 Influenza injectable quadriv alent preservative free 03/19/2023 Influenza, High Dose Seasona l, Preservative Free 05/04/2019 Influenza, IIV3, injectable 03/17/2020, 4,04/04/2011 Influenza, Split (incl. matteo fied surface antigen) 03/18/2013,04/16/2012 PPD Test 02/13/2020 Pneumococcal Conjugate PCV 13 02/25/2019, 017 Pneumococcal Polysaccharide PPSV23 02/17/2018, TD (adult), 2 Lf tetanus tox oid, preservative free, adsorbed 04/30/2001 Tdap 05/14/2013 Social History Tobacco Use Types Packs/Day Years Used Date Smoking Tobacco: Never Passive Smoke Exposure: Never Smokeless Tobacco: Never Tobacco Cessation:Counseling Given: Not Answered Alcohol Use Standard Drinks/Week Comments Never 0 [...] Orientation Straight 04/22/2022 10 :14 AM EDT Last Filed Vital Signs Vital Sign Reading [...] Mass Index 25.08 03/08/2025 1:11 PM EDT Plan of Treatment Health Maintenance Due Date Last Done Comments Lipid Panel 1936 Diabetes: Foot Exam 1946 Eye Exam 1945 Zoster Vaccines (1 of 2) 1986 RSV Patients and Patients Aged 60 years or older (1 - 1-dose 75+ series) 09/30/2011 DTaP/Tdap/Td Vaccines (2 - Td or Tdap) 05/14/2023 05/14/2013, 04/30/2001 COVID-19 Vaccine ( - season) 2025 09/14/2020, 08/17/2020 Influenza Vaccine (#1) 2025 , 03/17/2020, 05/04/2019, Additional history exists Diabetes: Hemoglobin A1C 04/19/2025 025, 03/19/2024, 11/21/2023, Additional history exists Depression Monitoring 09/05/2025 03/08/2025, 025 SDOH Screening 02/22/2026 02/22/2025 Alcohol/Substance Use Screening 03/08/2026 03/08/2025 Tobacco Screening 03/08/2026 03/08/2025 Hepatitis B Vaccines Completed 12/27/2013, 07/15/2013, 05/14/2013 Pneumococcal Vaccine: 50+ Years Completed 02/25/2019, 02/17/2018, 01/14/2017, Additional history exists HIB Vaccines Aged Out No longer eligi ble based on patient's age to complete this topic HPV Vaccines Aged Out No longer eligi ble based on patient's age to complete this topic Hepatitis A Vaccines Aged Out No long er eligible based on patient's age to complete this topic IPV Vaccines Aged Out No longer eligi ble based on patient's age to complete this topic Meningococcal B Vaccine Aged Out No l onger eligible based on patient's age to complete this topic Meningococcal Vaccine Aged Out No jennifer evon eligible based on patient's age to complete this topic RSV under 20 months Aged Out No longe r eligible based on patient's age to complete this topic Rotavirus Vaccines Aged Out No longer eligible based on patient's age to complete this topic Goals Goal Patient Goal Type Associated Problems Recent Progress Patient-Stated? Author Hemoglobin A1c < 8 Result Component 6.4(03/19/2024 4:15 PM EDT) No Liz Tapia PharmD Procedures Procedure Name Priority Date/Time Associated Diagnosis Comments POCT GLUCOSE Routine 03/08/2025 1:56 PM EDT Type 2 diabetes with complication ([facility]) POCT GLYCOSYLATED HEMOGLOBIN (HGB A1C) Routine 03/19/2024 4:15 PM EDT Type 2 diabetes with complication ([facility]) from Last 3 Months or Most Recently Relevant to Health Maintenance Results * (ABNORMAL) POCT Glucose (03/08/2025 1:56 PM EDT) Glucose Blood, POC 308(A) 60 - 200 mg/dL QC Media Lot # [id number] Lot# Expiration Date , Comment:random Blood Capillary blood specimen / Unknown 03/08/2025 1:56 PM EDT Sharron Cruz MD POINT OF CARE TEST ENTER/ED IT ORDERABLES Final Result * (ABNORMAL) POCT glycosylated hemoglobin (Hgb A1c) (03/19/2024 4:15 PM EDT) Hemoglobin A1C 6.4(A) 4.0 - 6.0 % QC Media Lot # [id number] Lot# Expiration Date [id number] Blood Capillary blood specimen / Unknown 03/19/2024 4:15 PM EDT Argelia Max MD POINT OF CARE TEST ENTER/EDIT ORDERABLES Final Result from Last 3 Months or Most Recently Relevant to Health Maintenance Insurance MEDICARE [facility] STANDARD Care Teams Drop Wire Aliner Relationship Specialty Start Date End Date Sharron Cruz MD [address] [place] [address] PCP - General Internal Medicine 03/01/25 [facility] 08/05/24
--- OUTSIDE RECORDS SUMMARY | 2025-03-08 17:38 | XMS_ITS | Encounter Summary ---
Author Organization [employer] Address 75 [facility] 7t [place] [address] Care Team Providers Care Spd Manager Name Role Phone Argelia Max MD Primary Care Provider [phone] Sharron Cruz MD Primary Care Provider [phone] Reason for Visit * Reason Comments Med Refill Encounter Details Date Type Department Care Team ([facility] st Contact Info) Description 10/27/2024 Refill [facility] MED & PEDS [address] [place], [place] [phone] Argelia Max MD [address] [place] [address] Social History Tobacco Use Types Packs/Day Years [...] enough money to get more: Never True 10/ Transportation Answer Date Recorded In the past [...] documented as of this encounter Care Teams Spd Manager Relationship Specialty Start Date End Date Argelia Max MD [address] [place] [address] PCP - General Family Medicine 02/24/22 02/28/25 Sharron Cruz MD [address] [place] [address] PCP - General Internal Medicine 03/01/25 [facility] 08/05/24 documented as of this encounter
--- OUTSIDE RECORDS SUMMARY | 2025-03-08 17:38 | XMS_ITS | Encounter Summary ---
Author Organization [employer] Address 75 [facility] 7t [place] [address] Care Team Providers Care Ice Platform Supervisor Name Role Phone Argelia Max MD Primary Care Provider [phone] Sharron Cruz MD Primary Care Provider [phone] Reason for Visit * Reason Comments Med Refill Encounter Details Date Type Department Care Team ([facility] st Contact Info) Description 08/13/[address] [facility] MEDICINE [address] [place], [place] [phone] Argelia Max MD [address] [place] [address] Social History Tobacco Use Types Packs/Day Years [...] is your housing situation today? I have hemrann dale 09/10/[address] you [...] documented as of this encounter Care Teams Ice Platform Supervisor Relationship Specialty Start Date End Date Argelia Max MD [address] [place] [address] PCP - General Family Medicine 02/24/22 02/28/25 Sharron Cruz MD [address] [place] [address] PCP - General Internal Medicine 03/01/25 [facility] 08/05/24 documented as of this encounter
--- OUTSIDE RECORDS SUMMARY | 2025-03-08 17:38 | XMS_ITS | Encounter Summary ---
Author Organization [employer] Address 75 [facility] 7t [place] [address] Care Team Providers Care Mining Helper Name Role Phone Argelia Max MD Primary Care Provider [phone] Sharron Cruz MD Primary Care Provider [phone] Reason for Visit * Reason Onset Date Comments Change provider 08/04/2024 Encounter Details Date Type Department Care Team ([facility] st Contact Info) Description 08/04/2024 Telephone [facility] MEDICINE [address] [place], [place] [phone] Argelia Max MD 230 [place], [place] [phone] Change provider Social History Tobacco Use Types Packs/Day Years [...] encounter Miscellaneous Notes * Telephone Encounter - Elisha Finley - 08/04/2024 3:44 PM EST Tc from pt granddaughter stating that due to pt's health she needs to change providers and facilityto [place]. Pt has dementia and other conditions that do not allow him to be in a car for an extended period of time. If any questions contact [phone] Nikki (upper sorbian) documented in this encounter Plan of Treatment [...] documented as of this encounter Care Teams Mining Helper Relationship Specialty Start Date End Date Argelia Max MD [address] [place] [address] PCP - General Family Medicine 02/24/22 02/28/25 Sharron Cruz MD [address] [place] [address] PCP - General Internal Medicine 03/01/25 [facility] 08/05/24 documented as of this encounter
--- OUTSIDE RECORDS SUMMARY | 2025-03-08 17:38 | XMS_ITS | Encounter Summary ---
Author Organization [email or web address] Address 75 [facility] 7t [place] [address] Care Team Providers Care Rail Equipment Operator Name Role Phone Argelia Max MD Primary Care Provider [phone] Sharron Cruz MD Primary Care Provider [phone] Encounter Details Date Type Department Care Team ([facility] st Contact Info) Description 07/22/2023 Orders Only [facility] MEDICINE 230 [place], [place] [phone] Argelia Max MD 230 [place], [place] [phone] Urinary retention (Primary Dx) Social History Tobacco Use Types Packs/Day Years [...] as of this encounter Visit Diagnoses Diagnosis Urinary retention- Primary Unspecified retention of urine documented in this encounter Care Teams Rail Equipment Operator Relationship Specialty Start Date End Date Argelia Max MD [address] [place] [address] PCP - General Family Medicine 02/24/22 02/28/25 Sharron Cruz MD [address] [place] [address] PCP - General Internal Medicine 03/01/25 [facility] 08/05/24 documented as of this encounter
--- OUTSIDE RECORDS SUMMARY | 2025-03-08 17:38 | XMS_ITS | Clinical Summary ---
Author Organization [facility] Address [address] [address] Phone Care Team Providers Care Health Occupations Teacher Name Role Phone Deborah Carrillo NP Primary Care Provider [phone] Allergies Active Allergy Reactions Criticality Noted Date Comments Sulfamethoxazole Itching,Rash Low 04/20/2020 Trimethoprim Hives,Rash Low 04/20/2020 Medications ACETAMINOPHEN EXTRA STRENGTH 500 MG tablet TAKE 1 OR 2 TABLETS BY MOUTH THREE TIMES DAILY NEEDED. max of SIX TABLETS PER DAY 9 Active ASPIRIN LOW DOSE 81 MG EC tablet Take 81 mg by mouth every morning 9 Active atorvastatin (LIPITOR) 80 MG tablet Take 1 tablet by mouth 1 (one) time each day 7 Active conjugated estrogens (PREMARIN) vaginal cream 0.5 Applicatorfuls at bed time 9 Active HUMALOG 100 UNIT/ML injection INJECT 32-34 UNITS SUBCUTANEOUSLY BEFORE BREAKFAST, 18 UNITS BEFORE LUNCH, AND 22 UNITS BEFORE SUPPER 9 Active irbesartan (AVAPRO) 150 MG tablet Take 150 mg by mouth every morning 9 Active levothyroxine (SYNTHROID, LEVOTHROID) 112 MCG tablet TAKE ONE TABLET EVERY DAY except for the and 15th of the month. 9 Active magnesium oxide (MAG-OX) 400 MG tablet Take 1 tablet by mouth every morning 9 Active metoprolol tartrate (LOPRESSOR) 25 MG tablet Take 1 tablet by mouth 2 (two) times a day 6 Active omeprazole (PriLOSEC) [address] capsule TAKE ONE CAPSULE EVERY MORNING BEFORE BREAKFAST 9 Active senna (SENOKOT) 8.6 MG tablet TAKE 1 OR 2 TABLETS BY MOUTH TWICE DAILY NEEDED 9 Active cholecalcifero l (VITAMIN D-3) 50 MCG (1999 UT) tablet Take 2,000 Units by mouth every morning 0 Active gabapentin (NEURONTIN) 100 MG capsule TAKE ONE CAPSULE BY MOUTH TWICE DAILY 0 Active magnesium oxide 400 (240 Mg) MG tablet Take 1 tablet by mouth every morning 0 Active bumetanide (BUMEX) 1 MG tablet TAKE TWO TABLETS TWICE DAILY IN THE MORNING AND EVENING 120 tablet 5 0 Active cholecalcifero l (VITAMIN D-3) 50 MCG (1999 UT) tablet TAKE ONE TABLET EVERY MORNING 30 tablet 10 1 Active amLODIPine (NORVASC) 10 MG tablet Take 10 mg by mouth 1 (one) time each day 5 Active Docusate Sodium (DSS) 100 MG capsule Take 100 mg by mouth every morning 4 Active Diclofenac Sodium 1 % gel Apply 2 g topically 2 (two) times a day if needed 4 Active lidocaine (Lidoderm) 5 % patch Apply 1 patch topically 1 (one) time each day 4 Active QUEtiapine (SEROquel) 25 MG tablet Take 25 mg by mouth every night 4 Active clopidogrel (PLAVIX) 75 MG tablet Take 75 mg by mouth 1 (one) time each day Active Active Problems Problem Noted Date Diagnosed Date Stage 3a chronic kidney disease 06/29/2019 Overview (06/26/2020): Update for Diagnosis Load Hypertensive disorder 06/29/2019 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 06/29/2019 Resolved Problems Problem Noted Date Diagnosed Date Resolved Date Glycosuria 06/29/2019 10/13/2019 Hyperparathyroidism 06/29/2019 11/16/19 21 Iron deficiency anemia 06/29/201911/16 Family History Relation Status Comments Father Mother Social History Tobacco Use Types Packs/Day Years Used Date Smoking Tobacco: Former Cigarettes Q uit: 04/04/2012 Comments:Smoking History Inf o:Unknown Alcohol Use Standard Drinks/Week Comments No 0 (1 standard drink = 0.6 oz pur e alcohol) Comments Unknown Sex and Gender Information Value Date Recorded Sex Assigned at Not on file Legal Sex Female 4:34 PM EST Gender Identity Not on file Sexual Orientation Not on file Last Filed Vital Signs Vital Sign Reading Time Taken Comments Blood Pressure 126/62 04/05/2019 12:00 PM EDT Pulse 70 04/05/2019 12:00 PM EDT Temperature - - Respiratory Rate 16 04/05/2019 12:00 PM EDT Oxygen Saturation - - Inhaled Oxygen Concentration - - Weight 76.7 kg (169 lb) 04/05/2019 12:00 PM EDT Height 147.3 cm (4' 10 ) 04/05/2019 12:00 PM EDT Body Mass Index 35.32 04/05/2019 12:00 PM EDT Plan of Treatment Health Maintenance Due Date Last Done Comments Diabetes: Ophthalmology Exam 06/29/2019 Diabetes: Pedal Pulse Checked 06/29/2019 Diabetes: Sensory Foot Exam 06/29/2019 Diabetes: Visual Foot Exam 06/29/2019 Influenza Vaccine (#1) 2025 3, 05/04/2019, 07/04/2017, Additional history exists Diabetes: Hemoglobin A1C 04/19/2025 025, 03/19/2024, 04/02/2019, Additional history exists Hepatitis B Vaccine Aged Out 12/27/2013, 07/15/2013, 05/14/2013 No longer eligible based on patient's age to complete this topic Pneumococcal Vaccine: 50+ Years Completed 02/25/2019, 02/17/2018, 01/14/2017, Additional history exists Pneumococcal Vaccine: Peds (0 to 5 Years) and At-Risk Patients (6 to 49 Years) Discontinued 02/25/2019, 02/17/2018, 01/14/2017, Additional history exists Procedures Procedure Name Priority Date/Time Associated Diagnosis Comments EXT RESULT ENTRY Routine 12/21/2024 EXT RESULT ENTRY Routine 12/20/2024 EXT RESULT ENTRY Routine 12/19/2024 HEMOGLOBIN A1C Routine 04/02/2019 11:20 AM EDT from Last 3 Months or Most Recently Relevant to Health Maintenance Results * (ABNORMAL) EXT RESULT ENTRY (12/21/2024) Only the most recent of3 resultswithin the time period is included. Hemoglobin 8.4(A) 12.0 - 16.0 Hematocrit 25.8(A) 36.0 - 46.0 Platelets 254 150 - 399 10*3/UL 12/21/2024 Historical Provider LAB BLOOD ORDERABLES Cecille l Result * (ABNORMAL) Hemoglobin A1c (04/02/2019 11:20 AM EDT) Hemoglobin A1C 6.5(H) (4-6) % [facility] Comment: HEMOGLOBIN A1C(%) GLUCOSE CONTROL INDEX <6% EXCELLENT 6-7% VERY GOOD 7-8% GOOD 8-10% FAIR >10% POOR Hemoglobin (Hb) A1c testing is performed by Johnny Mayela-quant immunoassay. Any cause of shortened erythrocyte survival will reduce exposure of erythrocytes to glucose with a consequent decrease in Hb A1c (%). Testing performed or reported by ~[facility], ~a Service of [facility], ~[address] [place] [address]~ 04/02/2019 11:2 0 AM EDT Wong López MD LAB BLOOD ORDERABLES Final Resul t [facility] from Last 3 Months or Most Recently Relevant to Health Maintenance Insurance Medicare Medicaid [place] Medicare Medicaid [place] Care Teams Health Occupations Teacher Relationship Specialty Start Date End Date Deborah Carrillo NP [address] [place] [address] PCP - General 04/27/19
--- OUTSIDE RECORDS SUMMARY | 2025-03-08 17:38 | XMS_ITS | Encounter Summary ---
Author Organization [employer] Address 75 [facility] 7t [place] [address] Care Team Providers Care Financial Institution Treasurer Name Role Phone Argelia Max MD Primary Care Provider [phone] Sharron Cruz MD Primary Care Provider [phone] Reason for Visit * Reason Onset Date Comments FYI 06/30/2023 Encounter Details Date Type Department Care Team ([facility] st Contact Info) Description 06/30/2023 Telephone [facility] MEDICINE 230 [place], [place] [phone] Argelia Max MD [address] [place], [place] [phone] FYI Social History Tobacco Use Types Packs/Day [...] Telephone Encounter - Meagan Patricio RN - 07/01/2023 9:37 AM EST FYI [facility] reporting BP. F/up appt. 07/25/23 * Telephone Encounter - Ailyn Shipley - 06/30/2023 4:14 PM EST Tc from [facility] with [facility] calling to report pt BP was 158/83 today (06/30). documented in this encounter Plan of Treatment Not on file documented as of this encounter Visit Diagnoses Not on filedocumented in this encounter Care Teams Financial Institution Treasurer Relationship Specialty Start Date End Date Argelia Max MD 230 [place] [address] PCP - General Family Medicine 02/24/22 02/28/25 Sharron Cruz MD [address] [place] [address] PCP - General Internal Medicine 03/01/25 [facility] 08/05/24 documented as of this encounter
--- OUTSIDE RECORDS SUMMARY | 2025-03-08 17:38 | XMS_ITS | Encounter Summary ---
Author Organization [employer] Address 75 [facility] 7t [place] [address] Care Team Providers Care Director Trust Name Role Phone Sharron Cruz MD Primary Care Provider [phone] Reason for Visit * Reason Onset Date Comments Med Refill 03/03/2025 Encounter Details Date Type Department Care Team ([facility] st Contact Info) Description 03/03/2025 Refill [facility] MED & PEDS [address] [place] [address] Jaye Trevino, PharmD 230 [place] [address] Social History Tobacco Use Types Packs/Day Years [...] encounter Miscellaneous Notes * Telephone Encounter - Jaye Trevino PharmD - 03/03/2025 11:30 AM EDT See HDF pre-visit note documented in this encounter Plan of Treatment Not on file documented as of this encounter Goals Goal Patient Goal Type Associated Problems Recent Progress Patient-Stated? Author Hemoglobin A1c < 8 Result Component 6.4(03/19/2024 4:15 PM EDT) No Liz Tapia PharmD documented as of this encounter Visit Diagnoses Not on filedocumented in this encounter Additional Health Concerns Assessment Noted Time PHQ-9 Depression Total Score: 8 09/19/19 24 9:44 AM EDT documented as of this encounter Care Teams Director Trust Relationship Specialty Start Date End Date Sharron Cruz MD [address] [place] [address] PCP - General Internal Medicine 03/01/25 [facility] 08/05/24 documented as of this encounter
--- OUTSIDE RECORDS SUMMARY | 2025-03-08 17:38 | XMS_ITS | Encounter Summary ---
Author Organization [employer] Address 75 [facility] 7t [place] [address] Care Team Providers Care Quality Systems Specialist Name Role Phone Argelia Max MD Primary Care Provider [phone] Sharron Cruz MD Primary Care Provider [phone] Encounter Details Date Type Department Care Team ([facility] st Contact Info) Description 07/08/2023 Telephone [facility] MEDICINE 230 [place], [place] [phone] Argelia Max MD [address] [place], [place] [phone] Social History Tobacco Use Types Packs/Day Years [...] on filedocumented in this encounter Care Teams Quality Systems Specialist Relationship Specialty Start Date End Date Argelia Max MD [address] [place] [address] PCP - General Family Medicine 02/24/22 02/28/25 Sharron Cruz MD [address] [place] [address] PCP - General Internal Medicine 03/01/25 [facility] 08/05/24 documented as of this encounter
--- OUTSIDE RECORDS SUMMARY | 2025-03-08 17:38 | XMS_ITS | Encounter Summary ---
Author Organization [facility], Address [address] [place] [address] Phone Care Team Providers Care Wireless Engineer Name Role Phone Deborah Carrillo NP Primary Care Provider [phone] Reason for Visit * Reason Comments Med Refill Encounter Details Date Type Department Care Team (Late st Contact Info) Description 02/01/2021 Refill [facility] [address] [place] [address] Wong López MD [address] [place] [address] Social History Tobacco Use Types Packs/Day Years [...] on file Sexual Orientation Not on file documented as of this encounter Miscellaneous Notes * Telephone Encounter - Ruba Flanagan - 02/01/2021 1:00 PM EDT Unable to contact pt to schedule f/u. Last appt 10/2019. documented in this encounter Plan of Treatment Not on file documented as of this encounter Visit Diagnoses Not on filedocumented in this encounter Care Teams Wireless Engineer Relationship Specialty Start Date End Date Deborah Carrillo NP [address] [place] [address] PCP - General 04/27/19 documented as of this encounter
--- OUTSIDE RECORDS SUMMARY | 2025-03-08 17:38 | XMS_ITS | Encounter Summary ---
Author Organization [employer] Address 75 [facility] 7t [place] [address] Care Team Providers Care Surgical Garment Inspector Name Role Phone Argelia Max MD Primary Care Provider [phone] Sharron Cruz MD Primary Care Provider [phone] Reason for Visit * Reason Onset Date Comments Hospital Follow-up 08/04/2024 Encounter Details Date Type Department Care Team (Late st Contact Info) Description 08/04/2024 Telephone [facility] MEDICINE 230 [place], [place] [phone] Argelia Max MD 230 [place], [place] [phone] Hospital Follow-up Social History Tobacco Use Types [...] Telephone Encounter - Elisha Finley - 08/04/2024 3:34 PM EST Tc from pt granddaughter requesting a HDF appt. Hospital: [place], [place] Date of admission: 07/31 Discharge date: 08/01 Diagnosed: Hypoglycemia *Send message to [facility] [phone] Prydeinig documented in this encounter Plan of Treatment Not on file documented as of this encounter Goals Goal Patient Goal Type Associated Problems Recent Progress Patient-Stated? Author Hemoglobin A1c < 8 Result Component 6.4(03/19/2024 4:15 PM EDT) No Liz Tapia, Enrique documented as of this encounter Visit Diagnoses Not on filedocumented in this encounter Additional Health Concerns Assessment Noted Time PHQ-9 Depression Total Score: 8 09/19/19 24 9:44 AM EDT documented as of this encounter Care Teams Surgical Garment Inspector Relationship Specialty Start Date End Date Argelia Max MD [address] [place] [address] PCP - General Family Medicine 02/24/22 02/28/25 Sharron Cruz MD [address] [place] [address] PCP - General Internal Medicine 03/01/25 [facility] 08/05/24 documented as of this encounter
--- OUTSIDE RECORDS SUMMARY | 2025-03-08 17:38 | XMS_ITS | Encounter Summary ---
Author Organization [employer] Address 75 [facility] 7t [place] [address] Care Team Providers Care Relay Engineer Name Role Phone Sharron Cruz MD Primary Care Provider [phone] Encounter Details Date Type Department Care Team (Latest Contact Info) Description 03/08/2025 Travel Social History Tobacco Use Types Packs/Day Years [...] AM EDT documented as of this encounter Functional Status * Over the [...] 1:57 PM EDT Sirena Simpson MA * Moving or speaking so slowly that other people could have noticed? Or the opposite - being so fidgety or restless that you have been moving around a lot more than usual. Answer Date of Assessment Author More than half the days 03/08/2025 1:57 PM EDT R Patricia jackson MA * Thoughts that you would be better off or hurting yourself in some way Answer Date of Assessment Author Not at all 03/08/2025 1:57 PM EDT Konstantin Simpson MA * Patient Health Questionnaire-9 Score Answer Date of Assessment Author 16 03/08/2025 1:57 PM EDT Konstantin Simpson MA * How difficult have these problems made it for you to do your work, take care of things at home, or get along with other people? Answer Date of Assessment Author Extremely difficult 03/08/2025 1:57 PM EDT Patricia Simpson MA documented as of this encounter Plan [...] Assessment Noted Time PHQ-9 Depression Total Score: 025 1:57 PM EDT documented as of this encounter Care Teams Relay Engineer Relationship Specialty Start Date End Date Sharron Cruz MD [address] [place] [address] [place] [address] PCP - General Internal Medicine 03/01/25 [facility] 08/05/24 documented as of this encounter
--- OUTSIDE RECORDS SUMMARY | 2025-03-08 17:38 | XMS_ITS | Encounter Summary ---
Author Organization [employer] Address 75 [facility] 7t [place] [address] Care Team Providers Care Scheduling Coordinator Name Role Phone Argelia Max MD Primary Care Provider [phone] Sharron Cruz MD Primary Care Provider [phone] Encounter Details Date Type Department Care Team ([facility] st Contact Info) Description 12/05/2023 Orders Only [facility] MEDICINE 230 [place], [place] [phone] Argelia Max MD 230 [place], [place] [phone] Type 2 diabetes with complication (CMS/HCC) (Primary Dx) Social History Tobacco Use Types [...] as of this encounter Visit Diagnoses Diagnosis Type 2 diabetes with complication (CMS/HCC)- Primary documented in this encounter Additional Health Concerns Assessment Noted Time PHQ-9 Depression Total Score: 8 09/19/19 24 9:44 AM EDT documented as of this encounter Care Teams Scheduling Coordinator Relationship Specialty Start Date End Date Argelia Max MD 230 [place] [address] PCP - General Family Medicine 02/24/22 02/28/25 Sharron Cruz MD 505 [place] [address] PCP - General Internal Medicine 03/01/25 [facility] 08/05/24 documented as of this encounter
--- OUTSIDE RECORDS SUMMARY | 2025-03-08 17:38 | XMS_ITS | Encounter Summary ---
Author Organization [employer] Address 75 [facility] 7t [place] [address] Care Team Providers Care Head Of Mobile Name Role Phone Argelia Max MD Primary Care Provider [phone] Sharron Cruz MD Primary Care Provider [phone] Reason for Visit * Reason Onset Date Comments FYI 07/21/2023 Encounter Details Date Type Department Care Team ([facility] st Contact Info) Description 07/21/2023 Telephone [facility] MEDICINE 230 [place], [place] [phone] Argelia Max MD 230 [place], [place] [phone] FYI Social History Tobacco Use Types Packs/Day [...] encounter Miscellaneous Notes * Telephone Encounter - El Marin - 07/21/2023 2:18 PM EST [facility] know pt was seen for PT today and also wanted to report bp being a little high 170/96. If any questions please contact Nicole at [phone]. documented in this encounter Plan of Treatment Not on file documented as of this encounter Visit Diagnoses Not on filedocumented in this encounter Care Teams Head Of Mobile Relationship Specialty Start Date End Date Argelia Max MD 230 [place] [address] PCP - General Family Medicine 02/24/22 02/28/25 Sharron Cruz MD 505 [place] [address] PCP - General Internal Medicine 03/01/25 [facility] 08/05/24 documented as of this encounter
--- OUTSIDE RECORDS SUMMARY | 2025-03-08 17:38 | XMS_ITS | Patient Health Record ---
Author Organization [employer] Address [address] [facility] [address] [place] [address] Care Team Providers Care Booth Cleaner Name Role Phone Meño Dominique Unavailable [phone] Allergies No Known Allergies Reason For Referral No Information Medications Medication SIG (Take, Route, Frequency, Duration) Notes Start Date End Date Status Easy Comfort Lancets - Miscellaneous TEST UP TO 4 TIMES DAILY; Duration: 75 Active Magnesium Oxide 400 MG Tablet 1 tablet as needed Orally Once a day Active traMADol HCl 50 MG Tablet 1 tablet as needed Orally every 8 hrs; Duration: 10 days acute pain exception 08/24/2021 Active DOK 100 MG Tablet 1 tablet as needed Orally Once a day Active Levothyroxine Sodium 75 MCG Tablet 1 tablet in the morning on an empty stomach*the dose was increased * Orally Once a day; Duration: 90 days Active Metoprolol Succinate ER 25 MG Tablet Extended Release 24 Hour 1 tablet Orally Once a day Active Accu-Chek Guide Me w/Device Kit USE DIRECTED; Duration: 30 Active glipiZIDE 5 MG Tablet 1 tablet 30 minutes before breakfast Orally Once a day Active Bumetanide 1 MG Tablet 1 tablet Orally Once a day Active Albuterol Sulfate HFA 108 (90 Base) MCG/ACT Aerosol Solution 1 puff as needed Inhalation every 4 hrs 05/23/2021 Not-Taking Alcohol Pads 70 % Pad TEST UP TO 4 TIMES DAILY; Duration: 75 Active Albuterol Sulfate (2.5 MG/3ML) 0.083% Nebulization Solution 3 ml as needed Inhalation every 6 hrs 05/23/2021 Not-Taking Accu-Chek Softclix Lancets - Miscellaneous TEST UP TO 4 TIMES DAILY; Duration: 75 Active Omeprazole 20 MG Tablet Delayed Release Disintegrating 1 tablet 30 minutes before morning meal Orally Once a day Active Fish Oil 1000 MG Capsule 1 capsule *cholesterol* Orally three times a day Not-Taking Accu-Chek Guide - Strip TEST UP TO 4 TIMES DAILY; Duration: 75 Active Atorvastatin Calcium 40 MG Tablet 1 tablet Orally Once a day Not-Taking SM Senna Laxative 8.6 MG Tablet 2 tablets at bedtime as needed Orally Once a day Not-Taking Pioglitazone HCl 30 MG Tablet TAKE ONE (1) TABLET DIABETES ORALLY ONCE A DAY 60 DAYS; Duration: 60 Active Lisinopril 20 MG Tablet 1 tablet, at morning Orally Once a day; Duration: 90 days Active Social History Tobacco Use: Social History Observation Description Date Details (start date - stop date) Never Smoker NA - NA Social History Tobacco Use Social Info Question Answer Notes Tobacco Use/Smoking Are you a nonsmoker Tobacco use other than smoking: Are you an other tobac co user? No Drugs/Alcohol: Social Info Question Answer Notes Alcohol Screen (Audit-C) Did you have a drink containing alcohol in the past year? No Points 0 Interpretation Negative Drugs Have you used drugs other than those for medical reasons in the past 12 months? No Caffeine Intake: 1-2 cups per day Additional Details Category Social Info Options Details Drugs/Alcohol: Do you smoke marijuana? De nies Do you drink alcohol? No Problems Problem Type SNOMED Code ICD Code Onset Dates Problem Status W/U Status Risk Notes Problem Primary insomnia (1802912) Primary insomnia (F51.01) Active confirmed Problem Essential hypertension (08429608) Essential (primary) hypertension (I10) Inactive confirmed Problem Chronic kidney disease due to hypertension (451752320666906) Hypertensive chronic kidney disease with stage 1 through stage 4 chronic kidney disease, or unspecified chronic kidney disease (I12.9) Active confirmed BP 140/90mg/dl.Und er last GFR 42 done 05/16/21 and Micro alb/ratio 598mg/creat done 05/16/21 ,Continue monitoring and treatment with Metoprolol and Glipizide Problem Atherosclerosis of aorta (03461902) Atherosclerosis of aorta (I70.0) Active confirmed From Chest XR done 05/04/21, Continue current treatment plan with Atorvastatin Problem Age-related osteoporosis (269881188) Age-related osteoporosis without current pathological fracture (M81.0) Active confirmed Problem Acute cystitis (85311670) Acute cystitis without hematuria (N30.00) Active confirmed Problem Gastroesophageal reflux disease without esophagitis (215274560) Gastroesophagea l reflux disease without esophagitis (K21.9) Active confirmed Problem Hyperglycemia due to type 2 diabetes mellitus (792528174710478) Type 2 diabetes mellitus with hyperglycemia, without long-term current use of insulin (E11.65) Active confirmed The Rybelsus was stopped due hipoglicemia. Pioglitazone dose was increased to 45 mg/day due the Pt /Cg voiced that the BS average in fasting in 150 mg/dl, and postpandrial 200 mg/dl. Under HbA1c 9.0 % done 05/16/21 , Continue current treatment plan with Pioglitazone and Glipizide Problem Acquired hypothyroidism (769023805) Acquired hypothyroidism (E03.9) Active confirmed Problem Constipation (54667021) Constipation, unspecified constipation type (K59.00) Active confirmed Problem Obese class I (finding) (703591626626830) Obesity (BMI 30.0-34.9) (E66.9) Active confirmed Problem Diabetic renal disease (528210376) Type 2 diabetes mellitus with chronic kidney disease, without long-term current use of insulin, unspecified CKD stage (E11.22) Active confirmed BS postprandi al between 210-310 mg/dl, Rybelsus was started.Under Micro alb/ratio 598mg/creat done 05/16/21 and last GFR 42 done 05/16/21,Contin ue monitoring and tratment with Glipizide, Pioglitazone Problem Dyslipidemia (076170311) Dyslipidemia (E78.5) Active confirmed Patient under Lifestyle modification, Low cholesterol diet and Continue current treatment plan with Atorvastatin Problem Exacerbation of mild persistent asthma (618698569) Mild intermittent asthma with acute exacerbation (J45.21) Active confirmed Problem Mixed hyperlipidemia (859450664) Hyperlipemia, mixed (E78.2) Active confirmed Problem Osteoarthritis of knee (850031762) Primary osteoarthritis of left knee (M17.12) Active confirmed Problem Dependence on wheelchair (867713462) Wheelchair bound (Z99.3) Active confirmed Problem Mitral valve disorder (77841731) Mitral valve insufficiency, unspecified etiology (I34.0) Active confirmed From echocardiogram done on 05/07/21 Problem Hypothyroidism (73021258) TSH (thyroid-stimul ating hormone deficiency) (E03.8) Active confirmed Problem Type 2 diabetes mellitus with other specified complication, unspecified whether senior care insulin use (E11.69) Active confirmed Patient under Lifestyle modification, Low cholesterol diet,Continue current treatment plan with Atorvastatin and Glipizide Problem Polyneuropathy due to type 2 diabetes mellitus (936680880) 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) Active confirmed monofilament and vibration tests were decreased during physical exam PCP note 05/01/21, Continue monitoring Problem Frail elderly (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 (R54) Active confirmed Problem Diastolic dysfunction (9860408) Diastolic dysfunction (I51.89) Active confirmed From echocardiogram done on 05/07/21 Problem Chronic interstitial lung disease (940168927687053) Chronic interstitial lung disease (J84.9) Active confirmed Under Xray done 05/07/21, Chronic interstitial changes of the lung parenchyma Problem Primary hypertension (51108727) Primary hypertension (I10) Inactive confirmed Under cardiology care Problem Chronic kidney disease stage 3B (disorder) (301117493) Chronic kidney disease (CKD) stage G3b/A1, moderately decreased glomerular filtration rate (GFR) between 30-44 mL/min/1.73 square meter and albuminuria creatinine ratio less than 30 mg/g (N18.32) Active confirmed Under last GFR 42 done 05/16/21 and Micro alb/ratio 598mg/creat done ,On treatment and Follow up PCP Plan Of Treatment Pending Test Test Name Order Date PCP - COA 05/01/2021 PCP - Diabetic Foot Exam 08/24/2021 [facility] ECG/EKG 06/05/2021 [facility] ECG/EKG 05/28/2021 Future Test Test Name Order Date CBC With Differential/Platelet Hemoglobin A1c 08/24/2021 Urinalysis, Complete 08/24/2021 TSH 08/24/2021 PTH intact Plus Calcium 08/24/2021 Albumin/Creatinine Ratio, Random Urine 0 08/24/2021 Lipid Panel 08/24/2021 CMP {Comprehensive Metabolic Panel} (14) 08/24/2021 Insurance Providers Payer Name Payer Address Payer Phone Subscriber Number Group Number Insured Name Patient Relationship to Insured Coverage Start Date Coverage End Date [facility] [address] [address] [place] [address] [id number] FRANSICO LOMBARDO Self - patient is the insured Medical (General) History Medical History History ICD Code Thyroid High blood pressure diabetes Surgical History Surgery Date(Month/Year) right hip replacement
--- OUTSIDE RECORDS SUMMARY | 2025-03-08 17:38 | XMS_ITS | Encounter Summary ---
Author Organization [facility], Address [address] [place] [address] Phone Care Team Providers Care Home Health Physical Therapist Name Role Phone Deborah Carrillo NP Primary Care Provider [phone] Reason for Visit * Reason Comments Med Refill Encounter Details Date Type Department Care Team (Late st Contact Info) Description 01/03/2021 Refill [facility] [address] [place] [address] Wong López MD [address] [place] [address] Social History Tobacco Use Types Packs/Day Years [...] on file documented as of this encounter Plan of Treatment Not on file documented as of this encounter Visit Diagnoses Not on filedocumented in this encounter Care Teams Home Health Physical Therapist Relationship Specialty Start Date End Date Deborah Carrillo NP [address] [place] [address] PCP - General 04/27/19 documented as of this encounter
--- OUTSIDE RECORDS SUMMARY | 2025-03-08 17:38 | XMS_ITS | Patient Health Record ---
Author Organization [facility] Address [address] [place] [address] Care Team Providers Care Scenic Arts Supervisor Name Role Phone Deborah Carrillo Primary Care Provider Cj Flores Unavailable [phone] Allergies Allergen (clinical drug ingredient) Drug/Non Drug Allergy documented on EMR Reaction Allergy Type Onset Date Status sulfamethoxazole / trimethoprim Bactrim rash Drug Allergy Active Reason For Referral No Information Medications Medication SIG (Take, Route, Frequency, Duration) Notes Start Date End Date Status Aspirin Low Dose 81 MG TAKE ONE TABLET E VERY MORNING Oral; Duration: 30 Activ e Levothyroxine Sodium 112 MCG TAKE ONE TABLET EVERY DAY except for the and 15th of the month. Oral; Duration: 30 Active Bumetanide 1 MG TAKE TWO TABLETS TWI CE DAILY IN THE MORNING AND EVENING Oral; Duration: 30 Activ e Magnesium Oxide 400 MG TAKE ONE TABLET E VERY MORNING Oral; Duration: 30 Activ e Irbesartan 150 MG TAKE ONE TABLET EVER Y MORNING Oral; Duration: 30 Activ e HumaLOG 100 UNIT/ML INJECT 32-34 UNITS SUBCUTANEOUSLY BEFORE BREAKFAST, 18 UNITS BEFORE LUNCH, AND 22 UNITS BEFORE SUPPER Subcutaneous; Duration: 14 Active Omeprazole 20 MG TAKE ONE CAPSULE MAI RY MORNING BEFORE BREAKFAST Oral; Duration: 90 Active Acetaminophen Extra Strength 500 MG TAKE 1 OR 2 TABLETS BY MOUTH THREE TIMES DAILY NEEDED. max of SIX TABLETS PER DAY Oral; Duration: 16 Activ e Vitamin D3 50 MCG (1999 UT) TAKE ONE CAPSULE EVERY MORNING Oral; Duration: 30 Activ e Atorvastatin Calcium 80 MG TAKE ONE TABL ET AT BEDTIME Oral; Duration: 90 Active Metoprolol Tartrate 25 MG TAKE ONE TABLE T IN THE MORNING AND EVENING Oral; Duration: 73 Active Immunizations Vaccine Route Administration Date Status Comme nts Influenza Unknown 03/24/2019 Administered Social History Tobacco Use: Social History Observation Description Date Details (start date - stop date) Former Smoker NA - NA Tobacco Use/Smoking Question Answer Notes Are you a: former smoker Alcohol Screen Question Answer Notes Did you have a drink containing alcohol in the p ast year? No Points 0 Interpretation Negative Plan Of Treatment Pending Test Test Name Order Date [id number] DYSTROPHIC NAILS ANY # Insurance Providers Payer Name Payer Address Payer Phone Subscriber Number Group Number Insured Name Patient Relationship to Insured Coverage Start Date Coverage End Date [employer] [address] [place] [address] [id number] Nay Fraser Self - patient is the insured Medical (General) History Medical History History ICD Code Arthritis asthma Back,Hip,and Knee pain CAD (Cholesterol) Cataracts Diabetic Gall bladder problems High blood pressure Kidney disease Osteoporosis thyroid Surgical History Surgery Date(Month/Year) gall bladder cataract surgery tubal ligation
--- OUTSIDE RECORDS SUMMARY | 2025-03-08 17:38 | XMS_ITS | Encounter Summary ---
Author Organization [facility], Address [address] [place] [address] Phone Care Team Providers Care Hand Coke Drawer Name Role Phone Deborah Carrillo NP Primary Care Provider [phone] Reason for Visit * Reason Comments Med Refill Encounter Details Date Type Department Care Team (Late st Contact Info) Description 06/23/2019 Refill [facility] [address] [place] [phone] Wong López MD [address] [place] [id number] Social History Tobacco Use Types Packs/Day Years [...] on filedocumented in this encounter Care Teams Hand Coke Drawer Relationship Specialty Start Date End Date Deborah Carrillo NP [address] [place] [address] PCP - General 04/27/19 documented as of this encounter
--- OUTSIDE RECORDS SUMMARY | 2025-03-08 17:38 | XMS_ITS | Encounter Summary ---
Author Organization [employer] Address [address] [place] [address] Care Team Providers Care Outside Installation Machinist Name Role Phone Sharron Cruz MD Primary Care Provider [phone] Encounter Details Date Type Department Care Team ([facility] st Contact Info) Description 03/02/2025 Telephone [facility]EDS [address] [place], [place] [phone] Jaye Trevino, PharmD [address] [place] [address] Social History Tobacco Use Types Packs/Day Years [...] encounter Miscellaneous Notes * Telephone Encounter - Lee Ann Yoo RN - 03/03/2025 10:58 AM EDT TC to [facility] in [place]. Was transferred to mechanical unit repairer of first floor and prompted to leave VM. Detailed VM left with nurses fax number for discharge summary to be sent and call back numberif additional questions. * Telephone Encounter - Jaye Trevino PharmD - 03/02/2025 4:20 PM EDT Patient merchandiser retail representative presented to the [facility] requesting to orange picker machine operator medboxes and reporting several medication changes occurring during recent hospitalization. Patient discharged from [facility] on 02/28. The merchandiser retail representative reported amlodipine had been discontinued, for example. They had bubble packs containing the following medications: atorvastatin 80mg, quetiapine 25mg, clopidogrel 75mg, trazodone 50mg, losartan 50mg, gabapentin 100mg, omeprazole 20mg, and levothyroxine 137mcg. Notably, clopidogrel and losartan were discontinued in the pharmacy on 01/03/25, noting per HDF . The HDF Pre-visit from that date specifies labetalol and losartan being discontinued. There is a riskof patient taking both aspirin (in medboxes) and clopidogrel due to age of 89 and bleeding risk. Will prioritize this discrepancy. Called [facility] at 4:20pm and requested that discharge summary and med list be faxed to nurses station at [phone] Attn Jaye. documented in this encounter Plan of Treatment Not on file documented as of this encounter Goals Goal Patient Goal Type Associated Problems Recent Progress Patient-Stated? Author Hemoglobin A1c < 8 Result Component 6.4(03/19/2024 4:15 PM EDT) Liz Fernandes PharmD documented as of this encounter Visit Diagnoses Not on filedocumented in this encounter Additional Health Concerns Assessment Noted Time PHQ-9 Depression Total Score: 8 09/19/19 24 9:44 AM EDT documented as of this encounter Care Teams Outside Installation Machinist Relationship Specialty Start Date End Date Sharron Cruz MD [address] [place] [address] PCP - General Internal Medicine 03/01/25 [facility] 08/05/24 documented as of this encounter
[2025-03-08 18:08] LABS: Anion Gap 14 (12-20); Blood Urea Nitrogen 20 mg/dL (9-16); Calcium 8.5 mg/dL (8.4-10.2); Carbon Dioxide 20 mmol/L (22-29); Chloride 113 mmol/L (96-108); Estimated Glomerular Filt Rate 52; Iron 57 mcg/dL (30-160); Percent Iron Saturation 29 % (15-50); Potassium 4.4 mmol/L (3.3-5.1); Sodium 143 mmol/L (135-145); Total Iron Binding Capacity 194 mcg/dL (228-428); Unsaturated Iron Binding 137 ug/dL
[2025-03-08 18:38] LABS: Folate 11.1 ng/mL (> or = 4.0); Vitamin B12 383 pg/mL (200-900)
== END 2025-03-08 13:47 | disposition home or self-care (01) ==
LOC: HO.CHCLDS 13:46
PROVIDERS: PCP Internal Medicine; Referring Provider Internal Medicine; Visit Provider Internal Medicine
DX: I10 Essential (primary) hypertension (principal); D50.8 Other iron deficiency anemias
CPT/HCPCS: 36415; 80048; 82607; 82746; 83540

== ENCOUNTER 2025-03-10 12:42 | Outpatient (REF) | payer MEDICARE, MEDICAID, SELFPAY ==
--- OUTSIDE RECORDS SUMMARY | 2025-03-08 13:00 | XMS_ITS | Encounter Summary ---
Author Organization [employer] Address [address] [facility] [address] [place] [address] Care Team Providers Care Seed Packer Name Role Phone Sharron Cruz MD Primary Care Provider [phone] Reason for Visit * Reason Comments hospital discharge follow up Encounter Details Date Type Department Care Team ([facility] st Contact Info) Description 03/08/2025 1:00 PM EDT Office Visit [facility]S [address] [place] [address] Sharron Cruz MD [address] [place] [address] Primary hypertension (Primary Dx); Difficulty walking; Primary insomnia; Type 2 diabetes with complication (CMS/HCC); Normocytic anemia Social History Tobacco Use Types Packs/Day Years Used Date Smoking Tobacco: Never Passive Smoke Exposure: Never Smokeless Tobacco: Never Alcohol Use Standard Drinks/Week Comments Never 0 (1 standard drink = 0.6 oz pur e alcohol) Depression Answer Date Recorded Patient Health Questionnaire-9 Score 16 03/08/2025 Patient Health Questionnaire-9 Score 16 03/08/2025 Last PHQ-9: Questionnaire Data Not on file 0 03/08/2025 Housing Stability Answer Date Recorded What is your housing situation today? I have hermannjosé miguel dale 02/22/[address] you li ve. Do you have problems with any of the following? None of the above 02/22/2025 Food Insecurity Answer Date Recorded Within the past 12 months, y ou worried that your food would run out before you got money to buy more: Never True 02/22/2025 Within the past 12 months,th e food you bought just didn't last and you didn't have enough money to get more: Never True 07/2024 Transportation Answer Date Recorded In the past 12 months, has l ack of transportation kept you from medical appts, meetings, work or from getting things needed for daily living? No 02/22/2025 Utilities Answer Date Recorded In the past 12 months, has t he electric, gas, oil or water company threatened to shut off services in your home? No 02/22/2025 Depression Answer Date Recorded Patient Health Questionnaire-2 Score 5 03/08/2025 Internet Access Answer Date Recorded Internet Access Q1 Yes 02/22/2025 Internet Access Q2 Not on file 02/22/2025 Comments No Sex and Gender Information Value Date Recorded Sex Assigned at Female 04/22/2022 10:14 AM EDT Legal Sex Female 10:14 AM EDT Gender Identity Female 04/22/2022 10:14 AM EDT Sexual Orientation Straight 04/22/2022 10 :14 AM EDT documented as of this encounter Last Filed Vital Signs Vital Sign Reading Time Taken Comments Blood Pressure 173/69 03/08/2025 1:11 PM EDT Pulse 70 03/08/2025 1:11 PM EDT Temperature 36.8 C (98.2 F) 03/08/2025 1:11 PM EDT Respiratory Rate 19 03/08/2025 1:11 PM EDT Oxygen Saturation 97% 03/08/2025 1:11 PM EDT Inhaled Oxygen Concentration - - Weight 47.2 kg (104 lb) 03/08/2025 1:11 PM EDT Height 137.2 cm (4' 6 ) 03/08/2025 1:11 PM EDT Body Mass Index 25.08 03/08/2025 1:11 PM EDT documented in this encounter Functional Status * Over the past 2 weeks, how often have you been bothered by any of the following problems? Question Answer Date of Assessment Author Patient Health Questionnaire-2 Score 5 02/21 1:57 PM EDT Patricia Simpson MA * Little interest or pleasure in doing things Answer Date of Assessment Author Nearly every day 03/08/2025 1:57 PM EDT Sirena Simpson MA * Feeling down, depressed, or hopeless Answer Date of Assessment Author More than half the days 03/08/2025 1:57 PM EDT Patricia Davis MA * Trouble falling or staying asleep, or sleeping too much Answer Date of Assessment Author Nearly every day 03/08/2025 1:57 PM EDT Sirena Simpson MA * Feeling tired or having little energy Answer Date of Assessment Author More than half the days 03/08/2025 1:57 PM MEDARDOT Patricia Simpson MA * Poor appetite or overeating Answer Date of Assessment Author Several days 03/08/2025 1:57 PM EDT Konstantin Simpson MA * Feeling bad about yourself - or that you are a failure or have let yourself or your family down Answer Date of Assessment Author Not at all 03/08/2025 1:57 PM EDT Konstantin Simpson MA * Trouble concentrating on things, such as reading the newspaper or watching television Answer Date of Assessment Author Nearly every day 03/08/2025 1:57 PM MEDARDOT Sirena Simpson MA * Moving or speaking so slowly that other people could have noticed? Or the opposite - being so fidgety or restless that you have been moving around a lot more than usual. Answer Date of Assessment Author More than half the days 03/08/2025 1:57 PM EDT Patricia Davis MA * Thoughts that you would be better off or hurting yourself in some way Answer Date of Assessment Author Not at all 03/08/2025 1:57 PM MEDARDOT Konstantin Simpson MA * Patient Health Questionnaire-9 Score Answer Date of Assessment Author 16 03/08/2025 1:57 PM EDT Konstantin Simpson MA * How difficult have these problems made it for you to do your work, take care of things at home, or get along with other people? Answer Date of Assessment Author Extremely difficult 03/08/2025 1:57 PM Patricia Cobos MA documented as of this encounter Progress Notes * Sharron Cruz MD - 03/08/2025 1:00 PM EDT SUBJECTIVE Nay Fraser is a 89 y.o. female who presents for hospital discharge follow up . HPI Mrs. Nay Fraser Is here for hospital discharge follow-up. Was evaluated at [facility] [place] on January 31 with hypertension. Patient was noted to need a higher level of care due to recent humerus fracture in the setting of dementia. Transferred to a rehab facility. Multiple changes were made to the patient's medication during her stay at the rehab facility. 1) trazodone 50 mg was added as needed 2) oxycodone was also added to help control the pain of the left humerus fracture. Labs were also remarkable for an H&H throughout both her [facility] stay [facility] with an H&H around 7.2/22.4. Close monitoring was recommended. Started on ascorbic acid/ferrous sulfate. 3) needs to follow-up with orthopedics as directed. Patient has rehab during her stay. Her losartan was resumed at 50 mg once a day. According to the discharge summary from the rehab facility ([facility]) Nay Fraser has done generally well with physical and Occupational Therapy making good gains in strength, conditioning. She came in the office today accompanied by her granddaughter who is her caregiver. The granddaughter reports Mrs. Nay Fraser does not stay asleep and scream throughout the night despite her being on Seroquel 25 mg at bedtime as well as trazodone 50 mg at bedtime. Review of system was provided through the help of her granddaughter. Mrs. Nay Fraser has very poor memory Problem List[1] Allergies[2] Medications Ordered Prior to Encounter[3] Review of Systems Constitutional: Negative for appetite change, chills and diaphoresis. HENT: Negative for congestion, dental problem and drooling. Respiratory: Negative for cough, choking and chest tightness. Cardiovascular: Negative for leg swelling. Gastrointestinal: Negative for abdominal pain, anal bleeding and blood in stool. Genitourinary: Negative for flank pain, frequency and genital sores. Musculoskeletal: Negative for back pain and gait problem. Left shoulder pain and arm pain Skin: Negative for pallor, rash and wound. OBJECTIVE Vitals: 03/08/25 1311 BP: (!) 173/69 BP Location: Left arm Patient Position: Sitting BP Cuff Size: Adult Pulse: 70 Resp: 19 Temp: 98.2 ??F (36.8 ??C) TempSrc: Oral SpO2: 97% Weight: 104 lb (47.2 kg) Height: 4' 6 (1.372 m) Physical Exam Constitutional: General: She is not in acute distress. Appearance: Normal appearance. She is not ill-appearing, toxic-appearing or diaphoretic. Cardiovascular: Rate and Rhythm: Normal rate. Pulmonary: Effort: Pulmonary effort is normal. No respiratory distress. Breath sounds: No stridor. No wheezing or rhonchi. Neurological: General: No focal deficit present. Mental Status: She is alert. Assessment/Plan Assessment/Plan Diagnoses and all orders for this visit: Primary hypertension Comments: Increase losartan to 100 mg daily DASH diet. BP monitoring at home. Keep the log for the next visit. Orders: - Basic Metabolic Panel; Future - losartan (Cozaar) 100 MG tablet; Take 1 tablet (100 mg) by mouth Once per day. Difficulty walking Comments: To keep as active as tolerated The family should keep on stimulating the patient Primary insomnia Comments: Melatonin added Patient will be evaluated at the next visit Orders: - melatonin 5 MG tablet; 5 to 10 mg once a day at bedtime Type 2 diabetes with complication ([facility]) Comments: Diet controlled Last A1c from December was 5.4% No change Orders: - POCT Glucose Normocytic anemia Comments: Will need to repeat CBC in 4 to 6 weeks to assess improvement Orders: - CBC auto differential; Future Other orders - ascorbic acid (Vitamin C) 500 MG tablet; Take 1 tablet (500 mg) by mouth Once per day. 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 ([facility]) Chronic kidney disease Type 2 diabetes with complication ([facility]) COVID Acute cystitis with hematuria Absence of bladder continence Cognitive changes Dysphagia, oral phase Presence of right artificial hip joint Unsteadiness on feet 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, psychotic disturbance, mood disturbance,or anxiety ([facility]) Requires assistance with activities of daily living (ADL) Urinary retention Primary insomnia Acute kidney injury superimposed on CKD ([facility]) ([facility]) Hospital discharge follow-up Microalbuminuria Osteopenia Sleep apnea syndrome Depression, recurrent ([facility]) Red eye Acquired hypothyroidism Acute ischemic right ADOBE FLEX DEVELOPER stroke ([facility]) Closed fracture of cervical vertebra ([facility]/HCC) Type 2 diabetes mellitus with chronic kidney disease, without long-term current use of insulin ([facility]) Dependence on wheelchair Mitral valve insufficiency Hyperlipidemia Gastroesophageal reflux disease without esophagitis Frail elderly Encounter for insertion of prosthetic hip after prior removal of hip prosthesis Primary osteoarthritis of left knee Dyslipidemia Difficulty walking Congestive heart failure ([facility]) Diastolic dysfunction Chronic interstitial lung disease ([facility]/HCC) Central sleep apnea syndrome Atherosclerosis of aorta ([facility]) Age-related osteoporosis without current pathological fracture Fracture of upper end of humerus Interstitial lung disease ([facility]) Chronic kidney disease due to type 2 diabetes mellitus ([facility]/HCC) 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 90 tablet 1 atorvastatin (Lipitor) 80 MG tablet TAKE ONE TABLET EVERY MORNING 90 tablet 3 Blood Pressure Monitoring (Blood Pressure Cuff) misc 1 each Once daily. 1 each 0 clopidogrel (Plavix) 75 MG tablet Take 1 tablet (75 mg) by mouth Once per day. 90 tablet 0 Diclofenac Sodium 1 % gel Apply 2 g topically in the morning and 2 g at noon. 150 g 3 docusate sodium (Colace) 100 MG capsule TAKE ONE CAPSULE EVERY MORNING 90 capsule 3 ferrous sulfate (Fe Tabs) 325 (65 Fe) MG EC tablet Take 1 tablet (325 mg) by mouth Once per day. Donot crush, chew, or split. 30 tablet 2 FREESTYLE LITE test strip Use to test blood sugar 2 times daily 100 each 12 gabapentin (Neurontin) 100 MG capsule Take 1 capsule twice daily 60 capsule 11 glucose (Glutose) 40 % gel oral gel Take 15 g by mouth if needed for low blood sugar. 15 g 3 levothyroxine (Synthroid, Levoxyl) 137 MCG tablet Take 137 mcg by mouth Once per day. 90 tablet 3 lidocaine (Lidoderm) 5 % patch Apply 1 patch topically Once per day. Remove & discard patch within 12 hours or as directed by MD. 30 patch 5 losartan (Cozaar) 50 MG tablet Take 1 tablet (50 mg) by mouth Once per day. Hold if SBP < 100 30tablet 2 omeprazole (PriLOSEC) [address] capsule TAKE ONE CAPSULE EVERY MORNING BEFORE BREAKFAST 90 capsule 1 oxyCODONE (Roxicodone) 5 MG immediate release tablet TAKE 1/2 TO 1 TABLET EVERY 8 HOURS NEEDED FOR SEVERE PAIN 15 tablet 0 QUEtiapine (SEROquel) 25 MG tablet TAKE ONE TABLET EVERY NIGHT AT BEDTIME 30 tablet 3 traZODone (Desyrel) 50 MG tablet Take 1 tablet (50 mg) by mouth if needed at bedtime for sleep. 30 tablet 2 [DISCONTINUED] Aspirin Low Dose 81 MG chewable tablet TAKE ONE TABLET EVERY MORNING 90 tablet 3 [DISCONTINUED] Blood Pressure Monitor kit Use as directed 3x/week 1 kit 0 [DISCONTINUED] gabapentin (Neurontin) 100 MG capsule TAKE TWO CAPSULES TWICE DAILY IN THE MORNING AND AT BEDTIME FOR NERVE PAIN 120 capsule 11 [DISCONTINUED] magnesium oxide (Mag-Ox) 400 (240 Mg) MG tablet Take 400 mg by mouth Once per day. [DISCONTINUED] oxyCODONE (Roxicodone) 5 MG immediate release tablet Take 0.5-1 tablets (2.5-5 mg) by mouth every 8 (eight) hours if needed for severe pain for up to 5 days. 15 tablet 0 No current facility-administered medications on file prior to visit. documented in this encounter Plan of Treatment Upcoming Encounters Date Type Department Care Team (Late st Contact Info) Description 04/07/2025 1:00 PM EDT Clinical Support [facility] [address] [place] [address] Scheduled Orders Name Type Priority Associated Diagnoses Orde r Schedule CBC auto differential Lab Routine Normocytic anemia Expected: 03/08/2025 (Approximate), Expires: 03/08/2026 documented as of this encounter Goals Goal Patient Goal Type Associated Problems Recent Progress Patient-Stated? Author Hemoglobin A1c < 8 Result Component 6.4(03/19/2024 4:15 PM EDT) No Liz Tapia, PharmD documented as of this encounter Procedures Procedure Name Priority Date/Time Associated Diagnosis Comments POCT GLUCOSE Routine 03/08/2025 1:56 PM EDT Type 2 diabetes with complication (CMS/HCC) BASIC METABOLIC PANEL Routine 03/08/2025 1:50 PM EDT Primary hypertension documented in this encounter Results * (ABNORMAL) POCT Glucose (03/08/2025 1:56 PM EDT) Glucose Blood, POC 308(A) 60 - 200 mg/dL QC Media Lot # [id number] Lot# Expiration Date Comment:random Blood Capillary blood specimen / Unknown 03/08/2025 1:56 PM EDT Sharron Cruz MD POINT OF CARE TEST ENTER/ED IT ORDERABLES Final Result * (ABNORMAL) Basic Metabolic Panel (03/08/2025 1:50 PM EDT) Sodium 143 135 - 145 mmol/L [facility] Potassium 4.4 3.3 - 5.1 mmol/L [facility] Chloride 113(H) 96 - 108 mmol/L [facility] Carbon Dioxide 20(L) 22 - 29 mmol/L [facility] Anion Gap 14 12 - [address] [facility] Urea Nitrogen (BUN) 20(H) 9 - 16 mg/dL [facility] Creatinine, Serum 1.01 0.5 - 1.4 mg/dL [facility] Estimated Glomerular Filt Rate [address] [facility] Comment:Chronic Kidney Disea se: Estimated GFR < 60 mL/min/1.27e3Idrwjk Kidney Disease: Estimated GFR < 15 mL/min/1.73m2 Glucose 290(H) 60 - 115 mg/dL [facility] Calcium 8.5 8.4 - 10.2 mg/dL [facility] Blood Venous blood specimen / Unknown 03/08/2025 1:50 PM EDT 03/08/2025 5:33 PM EDT us Sharron Cruz MD LAB BLOOD ORDERABLES Final Result [facility] [address] [place] [phone] [phone] documented in this encounter Visit Diagnoses Diagnosis Primary hypertension- Primary Unspecified essential hypertension Difficulty walking Difficulty in walking Primary insomnia Persistent disorder of initiating or maintaining sleep Type 2 diabetes with complication (CMS/HCC) Normocytic anemia Unspecified anemia documented in this encounter Additional Health Concerns Assessment Noted Time PHQ-9 Depression Total Score: 16 025 1:57 PM EDT documented as of this encounter Care Teams Seed Packer Relationship Specialty Start Date End Date Sharron Cruz MD [address] [place] [id number] PCP - General Internal Medicine 03/01/25 [facility] 08/05/24 documented as of this encounter
--- OUTSIDE RECORDS SUMMARY | 2025-03-10 11:30 | XMS_ITS | Encounter Summary ---
Author Organization [employer] Address [address] [facility] [address] [place] [address] Care Team Providers Care Undergraduate Intern Name Role Phone Sharron Cruz MD Primary Care Provider [phone] Encounter Details Date Type Department Care Team ([facility] Contact Info) Description 03/10/2025 11:30 AM EDT Office Visit [facility] MED & PEDS [address] [place], [place] [phone] Daphne Degroot MD [address], [place] [phone] Primary hypertension (Primary Dx); Iron deficiency anemia secondary to inadequate dietary iron intake; Hypothyroidism, unspecified type; Vascular dementia without behavioral disturbance (CMS/HCC) Social History Tobacco Use Types Packs/Day [...] Sign Reading Time Taken Comments Blood Pressure 148/70 03/10/2025 11:33 AM EDT Pulse 68 03/10/2025 11:33 AM EDT Temperature 36.2 C (97.1 F) 03/10/2025 11:33 AM EDT Respiratory Rate 16 03/10/2025 11:33 AM EDT Oxygen Saturation - - Inhaled Oxygen Concentration - - Weight 47.2 kg (104 lb) 03/10/2025 11:33 AM EDT Height 137.2 cm (4' 6 ) 03/10/2025 11:33 AM EDT Body Mass Index 25.08 03/10/2025 11:33 AM EDT documented in this encounter Progress Notes * Daphne Degroot MD - 03/10/2025 11:30 AM EDT Subjective Patient ID: Nay Fraser is a 89 y.o. female who presents for elevated BP levels. Nay is an 89-year-old female patient here with granddaughter for elevated blood pressure especially in the afternoon. Patient granddaughter states that during her last admission many of her medications were changed due to having hypotension .she saw PCP 2 days ago who increased her amlodipine to10 mg daily and losartan from 50 to 100 mg daily. Granddaughter states that a.m. blood pressure areimproved but p.m. blood pressure are in the range of 170-180 systolic. Patient is also having severe insomnia despite using melatonin 5 mg trazodone 50 mg and Seroquel 25 mg nightly. Granddaughter states that she screams all night for no reason despite not being in pain etc.. Review of Systems Constitutional: Negative for activity change, chills, fever and unexpected weight change. Well groomed Respiratory: Negative for cough, shortness of breath and wheezing. Cardiovascular: Negative for chest pain, palpitations and leg swelling. Gastrointestinal: Negative for abdominal pain and blood in stool. Endocrine: Negative for polydipsia and polyuria. Genitourinary: Negative for decreased urine volume, difficulty urinating, dysuria and hematuria. Musculoskeletal: Negative for arthralgias and gait problem. Skin: Negative for color change and rash. Neurological: Negative for dizziness and headaches. Hematological: Negative for adenopathy. Psychiatric/Behavioral: Negative for dysphoric mood, hallucinations, sleep disturbance and suicidalideas. The patient is not nervous/anxious. Objective BP (!) 148/70 (BP Location: Left arm, Patient Position: Sitting, BP Cuff Size: Adult) Pulse 68 Temp 97.1 ??F (36.2 ??C) (Oral) Resp 16 Ht 4' 6 (1.372 m) Wt 104 lb (47.2 kg) BMI25.08 kg/m?? Physical Exam Vitals reviewed. Constitutional: Comments: Well groomed HENT: Head: Normocephalic. Nose: Nose normal. Cardiovascular: Rate and Rhythm: Normal rate and regular rhythm. Heart sounds: Normal heart sounds. No murmur heard. Pulmonary: Effort: Pulmonary effort is normal. No respiratory distress. Breath sounds: Normal breath sounds. Abdominal: General: Bowel sounds are normal. Palpations: Abdomen is soft. Musculoskeletal: Right lower leg: No edema. Left lower leg: No edema. Skin: Findings: No rash. Neurological: Mental Status: She is alert. Mental status is at baseline. Psychiatric: Attention and Perception: She is inattentive. Mood and Affect: Affect is not angry or tearful. Behavior: Behavior is not agitated, aggressive or combative. Cognition and Memory: Cognition is not impaired. Assessment/Plan Diagnoses and all orders for this visit: Primary hypertension Comments: Uncontrolled in evening.Losartan dose increased to 100 mg QD by PCP 2 days ago.F/U in 4 weeks with nurses x BP check.Continue amlodipine 10 mg daily.Check TFts, adjust dosage if needed. Orders: - CBC auto differential; Future - TSH W/Reflex to FT4; Future Iron deficiency anemia secondary to inadequate dietary iron intake Comments: Recheck CBC today, continue oral iron.Refer if needed to hematology. Orders: - CBC auto differential; Future - TSH W/Reflex to FT4; Future Hypothyroidism, unspecified type Comments: Recheck TFTs today, adjust dose of levothyroxine if needed. Orders: - CBC auto differential; Future - TSH W/Reflex to FT4; Future Vascular dementia without behavioral disturbance (CMS/HCC) Comments: Has severe insomnia despite melatonine, 25 mg seroquel, trazodone 50 . Increase seroquel to 50 mg qhs , discussed with patient`s PCP. Other orders - QUEtiapine (SEROquel) 50 MG tablet; Take 1 tablet (50 mg) by mouth at bedtime. - losartan (Cozaar) 50 MG tablet; Take 1 tablet (50 mg) by mouth in the morning and 1 tablet (50 mg) in the evening. documented in this encounter Plan of Treatment Upcoming Encounters Date Type Department Care Team (Late st Contact Info) Description 04/07/2025 1:00 PM EDT Clinical Support [facility] [address] [place] [address] Scheduled Orders Name Type Priority Associated Diagnoses Orde r Schedule CBC auto differential Lab Routine Primary hypertension Iron deficiency anemia secondary to inadequate dietary iron intake Hypothyroidism, unspecified type Expected: 03/10/2025 (Approximate), Expires: 03/10/2026 TSH W/Reflex to FT4 Lab Routine Primary hypertension Iron deficiency anemia secondary to inadequate dietary iron intake Hypothyroidism, unspecified type Expected: 03/10/2025 (Approximate), Expires: 03/10/2026 documented as of this encounter Goals Goal Patient Goal Type Associated Problems Recent Progress Patient-Stated? Author Hemoglobin A1c < 8 Result Component 6.4(03/19/2024 4:15 PM EDT) No Liz Tapia, PharmD documented as of this encounter Visit Diagnoses Diagnosis Primary hypertension- Primary Unspecified essential hypertension Iron deficiency anemia secondary to inadequate dietary iron intake Hypothyroidism, unspecified type Vascular dementia without behavioral disturbance (CMS/HCC) documented in this encounter Additional Health Concerns Assessment Noted Time PHQ-9 Depression Total Score: 16 025 1:57 PM EDT documented as of this encounter Care Teams Undergraduate Intern Relationship Specialty Start Date End Date Sharron Cruz MD [address] [place] [address] PCP - General Internal Medicine 03/01/25 [facility] 08/05/24 documented as of this encounter
[2025-03-10 14:36] LABS: MANUAL DIFF FLAG NO
[2025-03-10 14:41] LABS: Hematocrit 30.1 % (37.0-47.0); Hemoglobin 9.7 g/dl (12.0-16.0); Imm Gran Abs Auto 0.03 X10*3/uL (0.00-0.03); Imm Gran Pct Auto 0.4 % (0.0-0.4); Lymphocytes Absolute Auto 1.7 X10*3/uL (1.2-4.9); Mean Corpuscular HGB Conc 32.2 g/dl (31.0-35.0); Mean Corpuscular Hemoglobin 29.4 pg (27.0-33.0); Mean Corpuscular Volume 91.2 fL (80.0-98.0); NRBC Abs Auto 0.000 X10*3/uL (0.0-0.012); NRBC Pct Auto 0.0 /100WBC (0.0-0.2); Platelet Count 380 X10*3/uL (160-400); Red Blood Count 3.30 X10*6/uL (4.20-5.50); White Blood Count 8.3 X10*3/uL (4.8-10.8)
--- OUTSIDE RECORDS SUMMARY | 2025-03-10 14:46 | XMS_ITS | Patient Health Record ---
Author Organization [facility] Address [address] [place] [address] Care Team Providers Care Chief Crna Name Role Phone Gerardo ZAMORA, Deborah Primary Care Provider Unavailab Trevin Brown Unavailable [phone] Reason For Referral No Information Plan Of Treatment No Information Insurance Providers Payer Name Payer Address Payer Phone Subscriber Number Group Number Insured Name Patient Relationship to Insured Coverage Start Date Coverage End Date MEDICARE OF [place] [address] [place] [address] [phone] [id number] FRANSICO LOMBARDO Self - patient is the insured MEDICAID OF [facility] [address] [place] [address] [phone] [id number] FRANSICO LOMBARDO Self - patient is the insured
--- OUTSIDE RECORDS SUMMARY | 2025-03-10 14:46 | XMS_ITS | Encounter Summary ---
Author Organization [employer] Address 75 [facility] 7t [place] [address] Care Team Providers Care Help Desk Assistant Name Role Phone Argelia Max MD Primary Care Provider [phone] Sharron Cruz MD Primary Care Provider [phone] Reason for Visit * Reason Onset Date Comments FYI 07/28/2023 Encounter Details Date Type Department Care Team ([facility] st Contact Info) Description 07/28/2023 Telephone [facility] MEDICINE [address] [place], [place] [phone] Argelia Max MD 230 [place], [place] [phone] FYI Social History Tobacco Use Types Packs/Day [...] EST Tc from Deidre, physical therapist at [facility], wanting to let pcp know pt was discharged early.Deidre stated pt's grandson requested she be discharged early due to her reaching baseline in mobility. If any questions you can contact Deidre [phone]. documented in this encounter Plan of Treatment Upcoming Encounters Date Type Department Care Team (Late st Contact Info) Description 04/07/2025 1:00 PM EDT Clinical Support [facility] MED & PEDS 505 [place] [address] documented as of this encounter Visit Diagnoses Not on filedocumented in this encounter Care Teams Help Desk Assistant Relationship Specialty Start Date End Date Argelia Max MD 230 [place] [address] PCP - General Family Medicine 02/24/22 02/28/25 Sharron Cruz MD 505 [place] [address] PCP - General Internal Medicine 03/01/25 [facility] 08/05/24 documented as of this encounter
--- OUTSIDE RECORDS SUMMARY | 2025-03-10 14:46 | XMS_ITS | Encounter Summary ---
Author Organization [employer] Address 75 [facility] 7t [place] [address] Care Team Providers Care Equipment Services Associate Name Role Phone Argelia Max MD Primary Care Provider [phone] Sharron Cruz MD Primary Care Provider [phone] Reason for Visit * Reason Onset Date Comments Nurse Triage 11/11/2023 Encounter Details Date Type Department Care Team ([facility] st Contact Info) Description 11/11/2023 Telephone [facility] MEDICINE 230 [place], [place] [phone] Argelia Max MD 230 [place], [place] [phone] Nurse Triage Social History Tobacco Use Types [...] * Telephone Encounter - Ailyn Shipley - 11/11/2023 8:41 AM EDT Symptoms: COVID-19 Exposure, Cough, Runny Nose, Body Aches Outcome: Schedule a same-day appointment or talk to a nurse or provider today Reason: Caller denied all higher acuity questions The caller accepted this outcome Please contact Nikki at [phone] (lang interpreter) documented in this encounter Plan of Treatment Upcoming Encounters Date Type Department Care Team ([facility] st Contact Info) Description 04/07/2025 1:00 PM EDT Clinical Support [facility] MED & PEDS 505 [place] [address] documented as of this encounter Goals Goal [...] documented as of this encounter Care Teams Equipment Services Associate Relationship Specialty Start Date End Date Argelia Max MD [address] [place] [address] PCP - General Family Medicine 02/24/22 02/28/25 Sharron Cruz MD [address] [place] [address] PCP - General Internal Medicine 03/01/25 [facility] 08/05/24 documented as of this encounter
--- OUTSIDE RECORDS SUMMARY | 2025-03-10 14:46 | XMS_ITS | Encounter Summary ---
Author Organization [employer] Address 75 [facility] 7t [place] [address] Care Team Providers Care Inside Wirer Name Role Phone Argelia Max MD Primary Care Provider [phone] Sharron Cruz MD Primary Care Provider [phone] Reason for Visit * Reason Onset Date Comments Hospital Follow-up 08/04/2024 Encounter Details Date Type Department Care Team (Late st Contact Info) Description 08/04/2024 Telephone [facility] MEDICINE 230 [place], [place] [phone] Argelia Max MD 230 [place], [place] [phone] Hospital Follow-up Social History Tobacco Use Types [...] pt granddaughter requesting a HDF appt. Hospital: [place] Date of admission: 07/31 Discharge date: 08/01 Diagnosed: Hypoglycemia *Send message to [place] Clinical Care Coordinators [phone] [place] Islander documented in this encounter Plan of Treatment Upcoming Encounters Date Type Department Care Team ([facility] st Contact Info) Description 04/07/2025 1:00 PM EDT Clinical Support [facility] CHC MED & PEDS 505 [place] [address] documented as of this encounter Goals Goal [...] documented as of this encounter Care Teams Inside Wirer Relationship Specialty Start Date End Date Argelia Max MD [address] [place] [address] PCP - General Family Medicine 02/24/22 02/28/25 Sharron Cruz MD [address] [place] [address] PCP - General Internal Medicine 03/01/25 [facility] 08/05/24 documented as of this encounter
--- OUTSIDE RECORDS SUMMARY | 2025-03-10 14:46 | XMS_ITS | Encounter Summary ---
Author Organization [employer] Address 75 [facility] 7t [place] [address] Care Team Providers Care Store Cashier Name Role Phone Argelia Max MD Primary Care Provider [phone] Sharron Cruz MD Primary Care Provider [phone] Reason for Visit * Reason Comments Med Refill Encounter Details Date Type Department Care Team ([facility] st Contact Info) Description 09/30/2023 Refill [facility] MEDICINE 230 [place], [place] [phone] Zakia Troncoso DO 230 [place], [place] [phone] Primary insomnia Social History Tobacco Use Types [...] as of this encounter Plan of Treatment Upcoming Encounters Date Type Department Care Team (Late st Contact Info) Description 04/07/2025 1:00 PM EDT Clinical Support [facility] MED & PEDS 505 [place] [address] documented as of this encounter Goals Goal [...] documented as of this encounter Care Teams Store Cashier Relationship Specialty Start Date End Date Argelia Max MD [address] [place] [address] PCP - General Family Medicine 02/24/22 02/28/25 Sharron Cruz MD 505 [place] [address] PCP - General Internal Medicine 03/01/25 [facility] 08/05/24 documented as of this encounter
--- OUTSIDE RECORDS SUMMARY | 2025-03-10 14:46 | XMS_ITS | Encounter Summary ---
Author Organization [employer] Address 75 [facility] 7t [place] [address] Care Team Providers Care Clay Grinder Name Role Phone Argelia Max MD Primary Care Provider [phone] Sharron Cruz MD Primary Care Provider [phone] Reason for Visit * Reason Onset Date Comments FYI 07/21/2023 Encounter Details Date Type Department Care Team ([facility] st Contact Info) Description 07/21/2023 Telephone [facility] MEDICINE 230 [place], [place] [phone] Argelia Max MD 230 [place], [place] [phone] FYI Social History Tobacco Use Types Packs/Day [...] PM EST Tc from Nicole calling from [facility] wanting to let the pcp know pt was seen for PT today and also wanted to report bp being a little high 170/96. If any questions please contact Nicole at [phone]. documented in this encounter Plan of Treatment Upcoming Encounters Date Type Department Care Team (Late st Contact Info) Description 04/07/2025 1:00 PM EDT Clinical Support [facility] MED & PEDS 505 [place] [address] documented as of this encounter Visit Diagnoses Not on filedocumented in this encounter Care Teams Clay Grinder Relationship Specialty Start Date End Date Argelia Max MD [address] [place] [address] PCP - General Family Medicine 02/24/22 02/28/25 Sharron Cruz MD 505 [place] [address] PCP - General Internal Medicine 03/01/25 [facility] 08/05/24 documented as of this encounter
--- OUTSIDE RECORDS SUMMARY | 2025-03-10 14:46 | XMS_ITS | Encounter Summary ---
Author Organization [employer] Address 75 [facility] 7t [place] [address] Care Team Providers Care Meter Repairer Helper Name Role Phone Argelia Max MD Primary Care Provider [phone] Sharron Cruz MD Primary Care Provider [phone] Encounter Details Date Type Department Care Team ([facility] st Contact Info) Description 07/22/2023 Orders Only [facility] MEDICINE 230 [place], [place] [phone] Argelia Max MD 230 [place], [place] [phone] Urinary retention (Primary Dx) Social History Tobacco [...] 1:00 PM EDT Clinical Support [facility] MED & PEDS 505 [place] [address] documented as of this encounter Visit Diagnoses Diagnosis Urinary retention- Primary Unspecified retention of urine documented in this encounter Care Teams Meter Repairer Helper Relationship Specialty Start Date End Date Argelia Max MD [address] [place] [address] PCP - General Family Medicine 02/24/22 02/28/25 Sharron Cruz MD 505 [place] [address] PCP - General Internal Medicine 03/01/25 [facility] 08/05/24 documented as of this encounter
--- OUTSIDE RECORDS SUMMARY | 2025-03-10 14:46 | XMS_ITS | Encounter Summary ---
Author Organization [employer] Address 75 [facility] 7t [place] [address] Care Team Providers Care Kitchen Cleaner Name Role Phone Argelia Max MD Primary Care Provider [phone] Sharron Cruz MD Primary Care Provider [phone] Reason for Visit * Reason Onset Date Comments Change provider 08/04/2024 Encounter Details Date Type Department Care Team ([facility] st Contact Info) Description 08/04/2024 Telephone [facility] MEDICINE 230 [place], [place] [phone] Argelia Max MD 230 [place], [place] [phone] Change provider Social History Tobacco Use Types [...] health she needs to change providers and [facility]. Pt has dementia and other conditions that do not allow him to be in a car for an extended period of time. If any questions contact [phone] Nikki (divehi) documented in this encounter Plan of Treatment Upcoming Encounters Date Type Department Care Team (Late st Contact Info) Description 04/07/2025 1:00 PM EDT Clinical Support [facility] MED & PEDS 505 [place] [address] documented as of this encounter Goals Goal [...] documented as of this encounter Care Teams Kitchen Cleaner Relationship Specialty Start Date End Date Argelia Max MD 230 [place] [address] PCP - General Family Medicine 02/24/22 02/28/25 Sharron Cruz MD [address] [place] [address] [place] [address] PCP - General Internal Medicine 03/01/25 [facility] 08/05/24 documented as of this encounter
--- OUTSIDE RECORDS SUMMARY | 2025-03-10 14:46 | XMS_ITS | Encounter Summary ---
Author Organization [employer] Address 75 [facility] 7t [place] [address] Care Team Providers Care Material Disposition Inspector Name Role Phone Argelia Max MD Primary Care Provider [phone] Sharron Cruz MD Primary Care Provider [phone] Reason for Visit * Reason Onset Date Comments FYI 06/30/2023 Encounter Details Date Type Department Care Team ([facility] st Contact Info) Description 06/30/2023 Telephone [facility] MEDICINE 230 [place], [place] [phone] Argelia Max MD 230 [place], [place] [phone] FYI Social History Tobacco Use Types Packs/Day [...] - 06/30/2023 4:14 PM EST Tc from [facility] with Jian calling to report pt BP was 158/83 today (06/30). documented in this encounter Plan of Treatment Upcoming Encounters Date Type Department Care Team (Late st Contact Info) Description 04/07/2025 1:00 PM EDT Clinical Support [facility] CHC MED & PEDS 505 [place] [address] documented as of this encounter Visit Diagnoses Not on filedocumented in this encounter Care Teams Material Disposition Inspector Relationship Specialty Start Date End Date Argelia Max MD [address] [place] [address] PCP - General Family Medicine 02/24/22 02/28/25 Sharron Cruz MD 505 [place] [address] PCP - General Internal Medicine 03/01/25 [facility] 08/05/24 documented as of this encounter
--- OUTSIDE RECORDS SUMMARY | 2025-03-10 14:46 | XMS_ITS | Encounter Summary ---
Author Organization [employer] Address 75 [facility] 7t [place] [address] Care Team Providers Care Advertising Account Representative Name Role Phone Argelia Max MD Primary Care Provider [phone] Sharron Cruz MD Primary Care Provider [phone] Reason for Visit * Reason Comments Med Refill Encounter Details Date Type Department Care Team ([facility] st Contact Info) Description 10/27/2024 Refill [facility] CHC MED & PEDS [address] [place], [place] [phone] Argelia Max MD 230 [place] [address] Social History Tobacco Use Types Packs/Day Years [...] Description 04/07/2025 1:00 PM EDT Clinical Support [facility] CHC MED & PEDS 505 [place] [address] documented as of this encounter Goals Goal [...] documented as of this encounter Care Teams Advertising Account Representative Relationship Specialty Start Date End Date Argelia Max MD [address] [place] [address] PCP - General Family Medicine 02/24/22 02/28/25 Sharron Cruz MD 505 [place] [address] PCP - General Internal Medicine 03/01/25 [facility] 08/05/24 documented as of this encounter
--- OUTSIDE RECORDS SUMMARY | 2025-03-10 14:46 | XMS_ITS | Encounter Summary ---
Author Organization [employer] Address 75 [facility] 7t [place] [address] Care Team Providers Care Oracle Security Consultant Name Role Phone Argelia Max MD Primary Care Provider [phone] Sharron Cruz MD Primary Care Provider [phone] Reason for Visit * Reason Onset Date Comments Hospital Follow-up 02/28/2025 Encounter Details Date Type Department Care Team (Late st Contact Info) Description 02/28/2025 Telephone [facility] MEDICINE 230 [place], [place] [phone] Argelia Max MD 230 [place], [place] [phone] Hospital Follow-up Social History Tobacco Use Types [...] Miscellaneous Notes * Telephone Encounter - Emmy Maldonado - 02/28/2025 3:25 PM EDT Tc from pt requesting a HDF appt. Hospital: [address] [place] [address] Date of admission: 02/07 Discharge date: 02/28 Diagnosed: Broken arm *Send message to [place] Clinical Care Coordinators documented in this encounter Plan of Treatment Upcoming Encounters Date Type Department Care Team (Late st Contact Info) Description 04/07/2025 1:00 PM EDT Clinical Support [facility] MED & PEDS 505 [place] [address] documented as of this encounter Goals Goal [...] documented as of this encounter Care Teams Oracle Security Consultant Relationship Specialty Start Date End Date Argelia Max MD [address] [place] [address] PCP - General Family Medicine 02/24/22 02/28/25 Sharron Cruz MD [address] [place] [address] PCP - General Internal Medicine 03/01/25 [facility] 08/05/24 documented as of this encounter
--- OUTSIDE RECORDS SUMMARY | 2025-03-10 14:46 | XMS_ITS | Encounter Summary ---
Author Organization [employer] Address 75 [facility] 7t [place] [address] Care Team Providers Care Amusement Park Worker Name Role Phone Argelia Max MD Primary Care Provider [phone] Sharron Cruz MD Primary Care Provider [phone] Encounter Details Date Type Department Care Team ([facility] st Contact Info) Description 07/08/[address] [facility] MEDICINE 230 [place], [place] [phone] Argelia Max MD 230 [place], [place] [phone] Social History Tobacco Use Types Packs/Day Years [...] 1:00 PM EDT Clinical Support [facility] MED & PEDS 505 [place] [address] documented as of this encounter Visit Diagnoses Not on filedocumented in this encounter Care Teams Amusement Park Worker Relationship Specialty Start Date End Date Argelia Max MD 230 [place] [address] PCP - General Family Medicine 02/24/22 02/28/25 Sharron Cruz MD 505 [place] [address] PCP - General Internal Medicine 03/01/25 [facility] 08/05/24 documented as of this encounter
--- OUTSIDE RECORDS SUMMARY | 2025-03-10 14:47 | XMS_ITS | Encounter Summary ---
Author Organization [employer] Address 75 [facility] 7t [place] [address] Care Team Providers Care Global Mobility Specialist Name Role Phone Argelia Max MD Primary Care Provider [phone] Sharron Cruz MD Primary Care Provider [phone] Reason for Visit * Reason Comments Med Refill Encounter Details Date Type Department Care Team ([facility] st Contact Info) Description 08/13/2024 Refill [facility] MEDICINE 230 [place], [place] [phone] Argelia Max MD 230 [place] [address] Social History Tobacco Use Types Packs/Day Years [...] Description 04/07/2025 1:00 PM EDT Clinical Support [facility] CHC MED & PEDS 505 [place] [address] documented as of this encounter Goals Goal [...] documented as of this encounter Care Teams Global Mobility Specialist Relationship Specialty Start Date End Date Argelia Max MD [address] [place] [address] PCP - General Family Medicine 02/24/22 02/28/25 Sharron Cruz MD 505 [place] [address] PCP - General Internal Medicine 03/01/25 [facility] 08/05/24 documented as of this encounter
--- OUTSIDE RECORDS SUMMARY | 2025-03-10 14:47 | XMS_ITS | Encounter Summary ---
Author Organization [employer] Address 75 [facility] 7t [place] [address] Care Team Providers Care Outside Sales Engineer Name Role Phone Argelia Max MD Primary Care Provider Sharron Cruz MD Primary Care Provider [phone] Reason for Visit * Reason Onset Date Comments Hospital Follow-up 12/27/2024 Encounter Details Date Type Department Care Team (Late st Contact Info) Description 12/27/[address] [facility] MEDICINE 230 [place], [place] [phone] Argelia Max MD 230 [place], [place] [phone] Hospital Follow-up Social History Tobacco Use Types [...] from pt requesting a HDF appt. Hospital: [facility] Date of admission: 12/16/24 Discharge date: 12/21/24 Diagnosed: dehydration / other DX that granddaughter was unable to provide. D/s advised to stop Losartan and Labetalol documented in this encounter Plan of Treatment Upcoming Encounters Date Type Department Care Team (Late st Contact Info) Description 04/07/2025 1:00 PM EDT Clinical Support [facility] MED & PEDS 505 [place] [address] documented as of this encounter Goals Goal [...] as of this encounter Care Teams Outside Sales Engineer Relationship Specialty Start Date End Date Argelia Max MD [address] [place] [address] PCP - General Family Medicine 02/24/22 02/28/25 Sharron Cruz MD [address] [place] [address] PCP - General Internal Medicine 03/01/25 [facility] 08/05/24 documented as of this encounter
--- OUTSIDE RECORDS SUMMARY | 2025-03-10 14:47 | XMS_ITS | Encounter Summary ---
Author Organization [facility], Address [address] [place] [address] Phone Care Team Providers Care Bilingual Counter Sales Retail Name Role Phone Deborah Carrillo NP Primary Care Provider [phone] Reason for Visit * Reason Comments Med Refill Encounter Details Date Type Department Care Team (Late st Contact Info) Description 02/01/2021 Refill [facility] [address] [place] [address] Wong López MD [address] [place] [address] Social History Tobacco Use Types Packs/Day Years [...] on filedocumented in this encounter Care Teams Bilingual Counter Sales Retail Relationship Specialty Start Date End Date Deborah Carrillo NP [address] [place] [address] PCP - General 04/27/19 documented as of this encounter
--- OUTSIDE RECORDS SUMMARY | 2025-03-10 14:47 | XMS_ITS | Encounter Summary ---
Author Organization [facility], Address [address] [place] [address] Phone Care Team Providers Care Plush Weaver Name Role Phone Deborah Carrillo NP Primary Care Provider [phone] Reason for Visit * Reason Comments Med Refill Encounter Details Date Type Department Care Team (Late st Contact Info) Description 06/23/2019 Refill [facility] [address] [place] [phone] Wong López MD [address] [place] [phone] Social History Tobacco Use Types Packs/Day Years [...] on filedocumented in this encounter Care Teams Plush Weaver Relationship Specialty Start Date End Date Deborah Carrillo NP [address] [place] [address] PCP - General 04/27/19 documented as of this encounter
--- OUTSIDE RECORDS SUMMARY | 2025-03-10 14:47 | XMS_ITS | Encounter Summary ---
Author Organization [employer] Address 75 [facility] 7 [place] [address] Care Team Providers Care Credit Administration Manager Name Role Phone Sharron Cruz MD Primary Care Provider [phone] Reason for Visit * Reason Onset Date Comments Chart Prep 03/07/2025 Encounter Details Date Type Department Care Team ([facility] st Contact Info) Description 03/07/2025 Telephone [facility] MED & PEDS 505 [place] [address] Sharron Cruz MD 505 [place] [address] Chart Prep Social History Tobacco Use Types [...] Upcoming Encounters Date Type Department Care Team ([facility] st Contact Info) Description 04/07/2025 1:00 PM EDT Clinical Support [facility]C MED & PEDS 505 [place] [address] documented as of this encounter Goals Goal [...] documented as of this encounter Care Teams Credit Administration Manager Relationship Specialty Start Date End Date Sharron Cruz MD 505 [place] [address] PCP - General Internal Medicine 03/01/25 [facility] [place] 08/05/24 documented as of this encounter
--- OUTSIDE RECORDS SUMMARY | 2025-03-10 14:47 | XMS_ITS | Patient Health Record ---
Author Organization [facility] Address [address] [facility] [address] [place] [address] Care Team Providers Care Adoption Social Worker Name Role Phone Meño Dominique Unavailable [phone] Allergies No Known Allergies Reason For Referral [...] W/U Status Risk Notes Problem Primary insomnia (9041149) Primary insomnia (F51.01) Active confirmed Problem Essential hypertension (29973244) Essential (primary) hypertension (I10) Inactive confirmed Problem Chronic kidney disease due to hypertension (428206990747040) Hypertensive chronic kidney disease with stage 1 through stage 4 chronic kidney disease, or unspecified chronic kidney disease (I12.9) Active confirmed BP 140/90mg/dl.Und er last GFR 42 done 05/16/21 and Micro alb/ratio 598mg/creat done 05/16/21 ,Continue monitoring and treatment with Metoprolol and Glipizide Problem Atherosclerosis of aorta (68001913) Atherosclerosis of aorta (I70.0) Active confirmed From Chest XR done 05/04/21, Continue current treatment plan with Atorvastatin Problem Age-related osteoporosis (990902038) Age-related osteoporosis without current pathological fracture (M81.0) Active confirmed Problem Acute cystitis (73420127) Acute cystitis without hematuria (N30.00) Active confirmed Problem Gastroesophageal reflux disease without esophagitis (294493159) Gastroesophagea l reflux disease without esophagitis (K21.9) Active confirmed Problem Hyperglycemia due to type 2 diabetes mellitus (145796659208548) Type 2 diabetes mellitus with hyperglycemia, without [...] with Pioglitazone and Glipizide Problem Acquired hypothyroidism (306426528) Acquired hypothyroidism (E03.9) Active confirmed Problem Constipation (22552229) Constipation, unspecified constipation type (K59.00) Active confirmed Problem Obese class I (finding) (454485801015956) Obesity (BMI 30.0-34.9) (E66.9) Active confirmed Problem Diabetic renal disease (117892915) Type 2 diabetes mellitus with chronic kidney disease, without long-term current use of insulin, unspecified CKD stage (E11.22) Active confirmed BS postprandi al between 210-310 mg/dl, Rybelsus was started.Under Micro alb/ratio 598mg/creat done 05/16/21 and last GFR 42 done 05/16/21,Contin ue monitoring and tratment with Glipizide, Pioglitazone Problem Dyslipidemia (321521042) Dyslipidemia (E78.5) Active confirmed Patient under Lifestyle modification, Low cholesterol diet and Continue current treatment plan with Atorvastatin Problem Exacerbation of mild persistent asthma (864590608) Mild intermittent asthma with acute exacerbation (J45.21) Active confirmed Problem Mixed hyperlipidemia (458633958) Hyperlipemia, mixed (E78.2) Active confirmed Problem Osteoarthritis of knee (271698886) Primary osteoarthritis of left knee (M17.12) Active confirmed Problem Dependence on wheelchair (451293664) Wheelchair bound (Z99.3) Active confirmed Problem Mitral valve disorder (66615095) Mitral valve insufficiency, unspecified etiology (I34.0) Active confirmed From echocardiogram done on 05/07/21 Problem Hypothyroidism (91578662) TSH (thyroid-stimul ating hormone deficiency) (E03.8) Active confirmed Problem Type 2 diabetes mellitus with other specified complication, unspecified whether shelter insulin use (E11.69) Active confirmed Patient under Lifestyle modification, Low cholesterol diet,Continue current treatment plan with Atorvastatin and Glipizide Problem Polyneuropathy due to type 2 diabetes mellitus (170464182) 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) Active confirmed monofilament and vibration tests were decreased during physical exam PCP note 05/01/21, Continue monitoring Problem Frail elderly (277950957) Frail elderly (R54) Active confirmed Problem Diastolic dysfunction (8408977) Diastolic dysfunction (I51.89) Active confirmed From echocardiogram done on 05/07/21 Problem Chronic interstitial lung disease (533140991517887) Chronic interstitial lung disease (J84.9) Active confirmed Under Xray done 05/07/21, Chronic interstitial changes of the lung parenchyma Problem Primary hypertension (02570842) Primary hypertension (I10) Inactive confirmed Under cardiology care Problem Chronic kidney disease stage 3B (disorder) (099257418) Chronic kidney disease (CKD) stage G3b/A1, moderately [...] Diabetic Foot Exam 08/24/2021 [facility] ECG/EKG 06/05/2021 [facility] ECG/EKG 05/28/2021 Future Test Test Name Order Date CBC With Differential/Platelet Hemoglobin A1c 08/24/2021 Urinalysis, Complete 08/24/2021 TSH 08/24/2021 PTH intact Plus Calcium 08/24/2021 Albumin/Creatinine Ratio, Random Urine 0 08/24/2021 Lipid Panel 08/24/2021 CMP {Comprehensive Metabolic Panel} (14) 08/24/2021 Insurance Providers Payer Name Payer Address Payer Phone Subscriber Number Group Number Insured Name Patient Relationship to Insured Coverage Start Date Coverage End Date [facility] [address] [address] [place] [phone] [id number] FRANSICO LOMBARDO Self - patient is the insured Medical (General) History Medical History History ICD Code Thyroid High blood pressure diabetes Surgical History Surgery Date(Month/Year) right hip replacement
--- OUTSIDE RECORDS SUMMARY | 2025-03-10 14:47 | XMS_ITS | Clinical Summary ---
Author Organization [facility] Address [address] [address] Phone Care Team Providers Care Manual Qa Tester Name Role Phone Deborah Carrillo NP Primary Care Provider [phone] Allergies Active Allergy Reactions Criticality Noted Date [...] ONE TABLET EVERY DAY except for the 1st and 15th of the month. 9 Active [...] AM EDT) Hemoglobin A1C 6.5(H) (4-6) % [employer] Comment: HEMOGLOBIN A1C(%) GLUCOSE CONTROL INDEX <6% EXCELLENT 6-7% VERY GOOD 7-8% GOOD 8-10% FAIR >10% POOR Hemoglobin (Hb) A1c testing is performed by Johnny Mayela-quant immunoassay. Any cause of shortened erythrocyte survival will reduce exposure of erythrocytes to glucose with a consequent decrease in Hb A1c (%). Testing performed or reported by ~[facility], ~a Service of [facility], ~[address] [place] [address]~ 04/02/2019 11:2 0 AM EDT Wong López MD LAB BLOOD ORDERABLES Final Resul t [employer] from Last 3 Months or Most Recently Relevant to Health Maintenance Insurance Medicare Medicaid [place] Medicare Medicaid [place] Care Teams Manual Qa Tester Relationship Specialty Start Date End Date Deborah Carrillo NP [address] [place] [address] PCP - General 04/27/19
--- OUTSIDE RECORDS SUMMARY | 2025-03-10 14:47 | XMS_ITS | Encounter Summary ---
Author Organization [employer] Address [address] [place] [address] Care Team Providers Care Mainspring Winder And Oiler Name Role Phone Sharron Cruz MD Primary Care Provider [phone] Reason for Visit * Reason Onset Date Comments Nurse Triage 03/09/2025 Encounter Details Date Type Department Care Team ([facility] st Contact Info) Description 03/09/2025 Telephone [facility] PEDS [address] [place] [address] Sharron Cruz MD [address] [place] [address] Nurse Triage Social History Tobacco Use Types [...] encounter Miscellaneous Notes * Telephone Encounter - Pennie Lo LPN - 03/09/2025 3:19 PM EDT Triage call to patient MICHAEL Jordan who reports that patient has had elevated BP now for two days. Lastwas 170/72 HR 64 patient yesterday med increased but some evidence of increase pain. Patient tearful and complained of bladder discomfort yesterday and today. No blood or pus in urine noted no dark color or odor to urine. Disposition reviewed and patient DaughProtocol Used: Urinary Symptoms (Adult) Protocol-Based Disposition: See in Office or Video Visit Today or Tomorrow Video visit not offered Positive Triage Question: * Patient wants to be seen * All higher-acuity triage questions were negative Care Advice Discussed: * Reasons To Call Back - Fever occurs - Pain or burning with urination - Unable to urinate and bladder feels full - You become worseter in agreement with plan. ASK/03/10/25 [facility] 11:30am. * Telephone Encounter - Tao Weiss - 03/09/2025 2:43 PM EDT Symptom: High Blood Pressure - Caller Reports Outcome: Talk to a nurse or provider within 15 minutes Reason: Sudden increase within the past 24 hours The caller accepted this outcome. Contact pt daughter at [phone] documented in this encounter Plan of Treatment Upcoming Encounters Date Type Department Care Team ([facility] st Contact Info) Description 04/07/2025 1:00 PM EDT Clinical Support [facility] MED & PEDS [address] [place] [address] documented as of this encounter Goals Goal [...] documented as of this encounter Care Teams Mainspring Winder And Oiler Relationship Specialty Start Date End Date Sharron Cruz MD [address] [place] [address] PCP - General Internal Medicine 03/01/25 [facility] 08/05/24 documented as of this encounter
--- OUTSIDE RECORDS SUMMARY | 2025-03-10 14:47 | XMS_ITS | Encounter Summary ---
Author Organization [employer] Address [address] [facility] [address] [place] [address] Care Team Providers Care Fire Apparatus Sprinkler Inspector Name Role Phone Sharron Cruz MD Primary Care Provider [phone] Encounter Details Date Type Department Care Team (Latest Contact Info) Description 03/10/2025 Travel Social History Tobacco Use Types Packs/Day [...] Description 04/07/2025 1:00 PM EDT Clinical Support [facility] MED & PEDS [address] [place] [address] documented as of this encounter Goals Goal [...] documented as of this encounter Care Teams Fire Apparatus Sprinkler Inspector Relationship Specialty Start Date End Date Sharron Cruz MD [address] [place] [address] PCP - General Internal Medicine 03/01/25 [facility] 08/05/24 documented as of this encounter
--- OUTSIDE RECORDS SUMMARY | 2025-03-10 14:47 | XMS_ITS | Encounter Summary ---
Author Organization [facility] Address [address] [facility] [address] [place] [address] Care Team Providers Care Diesel Automotive Technician Name Role Phone Argelia Max MD Primary Care Provider [phone] Sharron Cruz MD Primary Care Provider [phone] Reason for Visit * Reason Onset Date Comments FYI 05/29/2023 Encounter Details Date Type Department Care Team ([facility] st Contact Info) Description 05/29/2023 Telephone [facility] MEDICINE [address] [place], [place] [phone] Argelia Max MD [address] [place], [place] [phone] FYI Social History Tobacco Use Types Packs/Day [...] - 05/29/2023 9:04 AM EST Tc from laeena calling to advise PCP she will be faxing form for authorization on [employer]. States will need it signed and faxed to [phone] before 06/03. Any questions, contact aleena at [phone] ext [phone] documented in this encounter Plan of Treatment Upcoming Encounters Date Type Department Care Team (Late st Contact Info) Description 04/07/2025 1:00 PM EDT Clinical Support [facility] MED & PEDS [address] [place] [address] documented as of this encounter Visit Diagnoses Not on filedocumented in this encounter Care Teams Diesel Automotive Technician Relationship Specialty Start Date End Date Argelia Max MD [address] [place] [address] PCP - General Family Medicine 02/24/22 02/28/25 Sharron Cruz MD [address] [place] [address] PCP - General Internal Medicine 03/01/25 [facility] 08/05/24 documented as of this encounter
--- OUTSIDE RECORDS SUMMARY | 2025-03-10 14:47 | XMS_ITS | Encounter Summary ---
Author Organization [employer] Address [address] [facility] [address] [place] [address] Care Team Providers Care Rehabilitation Construction Specialist Name Role Phone Sharron Cruz MD Primary Care Provider [phone] Encounter Details Date Type Department Care Team [...] Upcoming Encounters Date Type Department Care Team ([facility] st Contact Info) Description 04/07/2025 1:00 PM EDT Clinical Support [facility] MED & PEDS [address] [place] [address] documented as of this encounter Goals Goal [...] documented as of this encounter Care Teams Rehabilitation Construction Specialist Relationship Specialty Start Date End Date Sharron Cruz MD [address] [place] [address] PCP - General Internal Medicine 03/01/25 [facility] 08/05/24 documented as of this encounter
--- OUTSIDE RECORDS SUMMARY | 2025-03-10 14:47 | XMS_ITS | Clinical Summary ---
Author Organization [employer] Address [address] [facility] 7t [place] [address] Care Team Providers Care Emergency Vehicle Operations Instructor Name Role Phone Sharron Cruz MD Primary Care Provider [phone] Allergies Active Allergy Reactions Criticality Noted Date [...] day. 90 tablet 1 01/27/20 25 Active oxyCODONE (Roxicodone) 5 MG immediate [...] 1 capsule twice daily 60 capsule 11 03/03/20 25 Active clopidogrel (Plavix) 75 MG tablet Take 1 tablet (75 mg) by mouth Once per day. 90 tablet 03/03/20 25 Active traZODone (Desyrel) 50 MG tablet Take 1 tablet (50 mg) by mouth if needed at bedtime for sleep. 30 tablet 2 03/03/20 25 Active ascorbic acid (Vitamin C) 500 MG tablet Take 1 tablet (500 mg) by mouth Once per day. 30 tablet 03/08/20 25 026 Active melatonin 5 MG tabletIndicatio ns:Primary insomnia 5 to 10 mg once a day at bedtime 60 tablet 3 03/08/20 25 Active QUEtiapine (SEROquel) 50 MG tablet Take 1 tablet (50 mg) by mouth at bedtime. 30 tablet 11 03/10/20 25 025 Active losartan (Cozaar) 50 MG tablet Take 1 tablet (50 mg) by mouth in the morning and 1 tablet (50 mg) in the evening. 60 tablet 11 03/10/20 026 Active Blood Pressure Monitor kit Use as [...] AT BEDTIME FOR NERVE PAIN 120 capsule 09/22/19 025 Discontinued(Re order (will not trigger notification to Pharmacy)) Aspirin Low Dose 81 MG chewable tablet TAKE ONE TABLET EVERY MORNING 90 tablet 11/17/19 025 Discontinued(Th erapy completed) oxyCODONE (Roxicodone) 5 MG immediate release tabletIndicatio ns:Physeal fracture of proximal end of humerus with routine healing, unspecified physeal fracture configuration, unspecified laterality, subsequent encounter Take 0.5-1 tablets (2.5-5 mg) by mouth every 8 (eight) hours if needed for severe pain for up to 5 days. 15 tablet 01/25/20 025 Discontinued QUEtiapine (SEROquel) 25 MG tablet TAKE ONE TABLET EVERY NIGHT AT BEDTIME 30 tablet 3 02/01/20 025 Discontinued(In effective) bisacodyl (Dulcolax) 10 MG suppository Insert into [...] 100 30 tablet 2 03/03/20 025 Discontinued losartan (Cozaar) 100 MG tabletIndicatio ns:Primary hypertension Take 1 tablet (100 mg) by mouth Once per day. 30 tablet 03/08/20 025 Discontinued(Th erapy completed) Active Problems Problem Noted Date Diagnosed Date [...] blood to be drawn Acute ischemic right EMS [facility]IC[facility]ILOT stroke 08/17/2024 Assessment & Plan (08/17/2024 12:36 [...] 06/17/2023 Acute kidney injury superimposed on CKD ([facility] ) 06/17/2023 Assessment & Plan (06/17/2023 2:26 [...] this point) Referral to neurology approved, call [facility] to schedule Alzheimer's number given in [...] medical records and starting process of requesting EMS [facility]IC[facility] for assistance Seeking other supports for dementia care Vascular dementia without behavioral disturbance 04/16/2023 COVID 03/19/2023 Assessment & Plan (11/12/2023 3:57 PM EDT): I advise to call 911 for an ambulance and transfer patient to [facility] emergency room Case present to Dr Worthington Assessment & Plan (03/19/2023 3:05 PM EDT): Resolved, Off O2 supplementation and steroids. Agreed to have Influenza vax today Fu w PCP Acute cystitis with hematuria 03/19/2023 Assessment & Plan (03/19/2023 2:52 PM EDT): Reportedly resolved. Repeat UA due to reported oliguria (?). Obtain CT scan and urology eval at [facility]. 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 PT/OT evaluation as above Family will administer [...] study, it could be related to microvascular FORMS DESIGNER changes/dementia? 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 I d/w family re fgstk check bid + prn hypoglycemia sxs. Rx glucose gel to give prn sxs Continue off Actos and Glipizide (which seh was on COMPONENT OVERHAUL OPERATOR, in [place]). Fu with PCP in 3-4w with labs Stage 3b chronic kidney disease 02/17/2018 Assessment & Plan (03/19/2023 2:56 PM EDT): Probably related to DM/HTN. Apparently worsened During recent hospitalization. Repeat BMP today. Will restart lisinopril if GFR is improved. FU w PCP and decide on renal referral. Allergic rhinitis, unspecified 10/30/2015 Constipation 10/30/2015 Assessment & Plan (03/19/2023 2:50 PM EDT): Restart Carlos, fu with PCP Diabetic retinopathy 10/30/2015 Hypertension [...] difficulties with insurance and changing coverage from [place] to [place] Will check BP status on 07/28/23 televisit [...] Encounters Date Type Department Care Team Description 03/10/2025 11:30 AM EDT Office Visit [facility] [address] [place] [address] Daphne Degroot MD Primary hypertension (Primary Dx); Iron deficiency anemia secondary to inadequate dietary iron intake; Hypothyroidism, unspecified type; Vascular dementia without behavioral disturbance (CMS/HCC) 03/10/2025 Travel 03/09/2025 Telephone [facility] [address] [place] [address] Sharron Cruz MD Nurse Triage 03/08/2025 1:00 PM EDT Office Visit [facility] [address] [place] [address] Sharron Cruz MD Primary hypertension (Primary Dx); Difficulty walking; Primary insomnia; Type 2 diabetes with complication (CMS/HCC); Normocytic anemia 03/08/2025 Travel 03/07/2025 Telephone [facility] [address] [place] [address] Sharron Cruz MD Chart Prep 03/03/2025 Refill [facility] [address] [place] [address] Jaye Trevino, PharmD 03/02/2025 Telephone [facility] [address] [place] [address] Jaye Trevino, PharmD 03/02/2025 Telephone [facility] [address] [place] [address] Sharron Cruz MD chart prep 03/02/2025 Refill [facility] [address] [place] [address] Argelia Max MD Physeal fracture of proximal end of humerus with routine healing, unspecified physeal fracture configuration, unspecified laterality, subsequent encounter 02/28/2025 Patient Outreach [address] [address] Argelia Max MD Transition Of Care (Tcm) (HDF- unscheduled ) 02/28/[address] [address] Argelia Max MD Hospital Follow-up 02/28/2025 Telephone [facility] [address] [place] [address] Argelia Max MD Chart Prep 02/22/2025 Patient Outreach [address] [address] Argelia Max MD Pre-visit Planning (SDOH screening negative and Tobacco screening negative) 01/31/2025 Telephone [facility] [address] [place] [address] Argelia Max MD FYI 01/30/[address] [address] Argelia Max MD 01/27/2025 Telephone [facility] [address] [place] [address] Argelia Max MD 01/26/2025 7:00 PM EDT Office Visit [facility] [address] [place] [address] Roger Sanon MD Iron deficiency anemia secondary to inadequate dietary iron intake (Primary Dx); Primary hypertension; Difficulty walking; Requires assistance with activities of daily living (ADL) 01/26/2025 Travel 01/25/[address] [address] Argelia Max MD Referral 01/21/2025 3:45 PM EDT Telemedicine [address] [address] Argelia Max MD Moderate vascular dementia without [...] Multiple falls 01/21/2025 Travel 01/11/2025 Patient Outreach [address] [address] Argelia Max MD Pre-visit Planning ((Unable to reach for PVP screening, LVM) to be completed in office ) 01/10/2025 Telephone [facility] [address] [place] [address] Sharron Cruz MD No Show 01/03/[address] [address] Tiffanie Davenport, Enrique 12/27/2024 Patient Outreach [facility] [address] [place] [address] Argelia Max MD Transition Of Care (Tcm) (HDF scheduled.) 12/27/[address] [address] Argelia Max MD Hospital Follow-up 12/22/2024 Patient Outreach [address] [address] Argelia Max MD Pre-visit Planning (HDF unscheduled LVM ) from Last 3 Months Immunizations Immunization Administration [...] 16 03/10/2025 11:33 AM EDT Oxygen Saturation 97% 03/08/2025 1:11 PM EDT Inhaled Oxygen Concentration - - Weight 47.2 kg (104 lb) 03/10/2025 11:33 AM EDT Height 137.2 cm (4' 6 ) 03/10/2025 11:33 AM EDT Body Mass Index 25.08 03/10/2025 11:33 AM EDT Plan of Treatment Upcoming Encounters Date Type Department Care Team (Late st Contact Info) Description 04/07/2025 1:00 PM EDT Clinical Support [facility] [address] [place] [address] Health Maintenance Due Date Last Done Comments Lipid Panel 1936 Diabetes: Foot Exam 1946 Eye Exam 1945 Zoster Vaccines (1 of 2) 1986 RSV Patients and Patients Aged 60 years or older (1 - 1-dose 75+ series) 09/30/2011 DTaP/Tdap/Td Vaccines (2 - Td or Tdap) 05/14/2023 05/14/2013, 04/30/2001 COVID-19 Vaccine (3 - season) 2025 09/14/2020, 08/17/2020 Influenza Vaccine (#1) 2025 3, 03/17/2020, 05/04/2019, Additional history exists Diabetes: Hemoglobin [...] Routine 03/08/2025 1:50 PM EDT Primary hypertension VITAMIN B12/FOLATE, SERUM PANEL Routine 03/08/2025 1:50 PM EDT Iron deficiency anemia secondary to inadequate dietary iron intake IRON AND TOTAL IRON BINDING CAPACITY Routine 03/08/2025 1:50 PM EDT Iron deficiency anemia secondary to inadequate dietary iron intake POCT GLYCOSYLATED HEMOGLOBIN (HGB A1C) Routine 03/19/2024 4:15 PM EDT Type 2 diabetes with complication (CMS/HCC) from Last 3 Months or Most Recently Relevant to Health Maintenance Results * (ABNORMAL) POCT Glucose (03/08/2025 1:56 PM EDT) Glucose Blood, POC 308(A) 60 - 200 mg/dL QC Media Lot # [id number] Lot# Expiration Date Comment:random Blood Capillary blood specimen / Unknown 03/08/2025 1:56 PM EDT us Sharron Cruz MD POINT OF CARE TEST ENTER/ED IT ORDERABLES Final Result * Vitamin B12/Folate, Serum Panel (03/08/2025 1:50 PM EDT) Pathologist [facility] Vitamin B12 383 200 - 900 pg/mL [facility] Comment:NORMAL 200-900 PG/ML INDETERMINATE 160-199 PG/ML DEFICIENT < 160 PG/ML Folate 11.1 > or = 4.0 ng/mL [facility] Comment:Reference Values:> o r = 4.0 ng/mL< 4.0 ng/mL suggests folate deficiency Methotrexate, aminopterin and folinic acid(leucovorin) are chemotherapeutic agents whose molecularstructures are similar to folate; therefore, the Architectfolate assay cannot be used for patients using these drugs. Blood Venous blood specimen / Unknown 03/08/2025 1:50 PM EDT 03/08/2025 5:33 PM EDT us Roger Monroy MD LAB BLOOD ORDERABL ES Final Result [facility] [address] [place] [phone] * (ABNORMAL) Iron And Total Iron Binding Capacity (03/08/2025 1:50 PM EDT) Pathologist [facility] Iron 57 30 - 160 mcg/dL [facility] Total Iron Binding Capacity 194(L) 228 - 428 mcg/dL [facility] Percent Iron Saturation 29 15 - 50 % [facility] Unsaturated Iron Binding 137 ug/dL [facility] Blood Venous blood specimen / Unknown 03/08/2025 1:50 PM EDT 03/08/2025 5:33 PM EDT Roger Monroy MD LAB BLOOD ORDERABL ES Final Result [facility] [address] [place] [address] [phone] * (ABNORMAL) Basic Metabolic Panel (03/08/2025 1:50 PM EDT) [facility] Sodium 143 135 - 145 mmol/L [facility] Potassium 4.4 3.3 - 5.1 mmol/L [facility] Chloride 113(H) 96 - 108 mmol/L [facility] Carbon Dioxide 20(L) 22 - 29 mmol/L [facility] Anion Gap 14 12 - 20 [facility] Urea Nitrogen (BUN) 20(H) 9 - 16 mg/dL [facility] Creatinine, Serum 1.01 0.5 - 1.4 mg/dL [facility] Estimated Glomerular Filt Rate 52 [facility] Comment:Chronic Kidney Disea se: Estimated GFR < 60 mL/min/1.61r4Mgqiuv Kidney Disease: Estimated GFR < 15 mL/min/1.73m2 Glucose 290(H) 60 - 115 mg/dL [facility] Calcium 8.5 8.4 - 10.2 mg/dL [facility] Blood Venous blood specimen / Unknown 03/08/2025 1:50 PM EDT 03/08/2025 5:33 PM EDT us Sharron Cruz MD LAB BLOOD ORDERABLES Final Result [facility] [address] [place] [address] [phone] * (ABNORMAL) POCT glycosylated hemoglobin (Hgb A1c) (03/19/2024 4:15 PM EDT) Hemoglobin A1C 6.4(A) 4.0 - 6.0 % QC Media Lot # [id number] Lot# Expiration Date 61, Blood Capillary blood specimen / Unknown 03/19/2024 4:15 PM EDT us Argelia Max MD POINT OF CARE TEST ENTER/EDIT ORDERABLES Final Result from Last 3 Months or Most Recently Relevant to Health [place] [id number] [facility] [employer] Care Teams Emergency Vehicle Operations Instructor Relationship Specialty Start Date End Date Sharron Cruz MD [address] [place] [phone] PCP - General Internal Medicine 03/01/25 [facility] 08/05/24
--- OUTSIDE RECORDS SUMMARY | 2025-03-10 14:47 | XMS_ITS | Patient Health Record ---
Author Organization [facility] Address [address] [place] [address] Care Team Providers Care Furnace Combustion Analyst Name Role Phone Deborah Carrillo Primary Care Provider Cj Flores Unavailable [phone] Allergies Allergen (clinical drug ingredient) Drug/Non Drug [...] Treatment Pending Test Test Name Order Date [id number] DYSTROPHIC NAILS ANY # Insurance Providers Payer Name Payer Address Payer Phone Subscriber Number Group Number Insured Name Patient Relationship to Insured Coverage Start Date Coverage End Date Medicare National [employer]t [employer] [address] [place] [address] [id number] Nay Fraser Self - patient is the insured Medical (General) History Medical History History ICD Code Arthritis asthma Back,Hip,and Knee pain CAD (Cholesterol) Cataracts Diabetic Gall bladder problems High blood pressure Kidney disease Osteoporosis thyroid Surgical History Surgery Date(Month/Year) gall bladder cataract surgery tubal ligation
--- OUTSIDE RECORDS SUMMARY | 2025-03-10 14:47 | XMS_ITS | Encounter Summary ---
Author Organization [employer] Address [address] [facility] 7[address] [place] [address] Care Team Providers Care Entry Level Marketing Representative Name Role Phone Argelia Max MD Primary Care Provider [phone] Sharron Cruz MD Primary Care Provider [phone] Encounter Details Date Type Department Care Team ([facility] st Contact Info) Description 12/05/2023 Orders Only [facility] [address] [place], [place] [phone] Argelia Max MD [address] [place], [place] [phone] Type 2 diabetes with complication (CMS/HCC) (Primary [...] 1:00 PM EDT Clinical Support [facility] [address] [place] [address] documented as of this encounter Goals Goal [...] documented as of this encounter Care Teams Entry Level Marketing Representative Relationship Specialty Start Date End Date Argelia Max MD [address] [place] [phone] PCP - General Family Medicine 02/24/22 02/28/25 Sharron Cruz MD [address] [place] [address] PCP - General Internal Medicine 03/01/25 [facility] 08/05/24 documented as of this encounter
--- OUTSIDE RECORDS SUMMARY | 2025-03-10 14:47 | XMS_ITS | Encounter Summary ---
Author Organization [facility], Address [address] [place] [address] Phone Care Team Providers Care Wheelage Clerk Name Role Phone Deborah Carrillo NP Primary Care Provider [phone] Reason for Visit * Reason Comments Med Refill Encounter Details Date Type Department Care Team (Late st Contact Info) Description 01/03/2021 Refill [facility] [address] [place] [address] Wong López MD [address] [place] [address] Social History Tobacco Use Types Packs/Day Years [...] on filedocumented in this encounter Care Teams Wheelage Clerk Relationship Specialty Start Date End Date Deborah Carrillo NP [address] [place] [phone] PCP - General 04/27/19 documented as of this encounter
== END 2025-03-10 12:43 | disposition home or self-care (01) ==
LOC: HO.CHCLDS 12:42
PROVIDERS: Visit Provider Pediatrics
DX: I10 Essential (primary) hypertension (principal); D50.8 Other iron deficiency anemias; E03.9 Hypothyroidism, unspecified
CPT/HCPCS: 36415; 84443; 85025